=== PATIENT | male | born 1955 | race Caucasian/White ===

== ENCOUNTER 2018-09-01 15:02 | Emergency (ER) | payer MEDICAID, SELFPAY ==
[2018-09-01 15:04] VITALS: BP 124/69; PULSE 85; RESP 16; TEMP 36.7; O2SAT 98; BMI 18.9
--- NOTE | 2018-09-01 15:21 | ED.VISSUMM ---
- ER Visit Summary Date of Service: 09/01/18 Chief Complaint: Difficulty swallowing and constipated History of Present Illness: The patient is a 62 M past medical history of a cholecystectomy. Patient is currently on no medications. He states that for a month he has had difficulty swallowing he is able to swallow at times but states sometimes he swallows and it comes back up. He denies any pain. He denies any fever. He denies ever having upper endoscopy. Also states he has had constipation recently but has had a bowel movement in the last 5 days. Normal pain. Physical Examination: Well-appearing male no acute distress. Vital signs are stable and afebrile. HEENT exam mildly dry mucous membranes. He is able to swallow his own secretions. I gave him a glass of water he was able to swallow it. He seemed to throw his head back to help get it down but he did not have any difficulty swallowing. He did not bring it back up. There is no stridor. No drooling. Neck is nontender. Trachea midline. No lymphadenopathy. Lungs clear to auscultation bilaterally. Heart regular rhythm no murmur. Abdomen is soft and nontender normal bowel sounds no peritoneal signs. There is absolutely no signs of obstruction. He is got a scaphoid abdomen. He is thin. He is completely nontender. There is no hernias or masses. No pulsatile mass. No localizing tenderness. Patient is moving all 4 extremities. The neurovascular intact. No edema. Normal range of motion. Neurologically he is awake and alert with no focal motor deficit. Back is nontender. Test Results: CBC shows a normal white count of 7 and hemoglobin of 15. No bands. Chemistry showed gap of 4 BUN of 25 creatinine 1.35 with no old labs available for comparison. Single view KUB shows no acute abnormality read both by myself the radiologist there are no significant signs of obstruction and definitely no significant amount of stool. Emergency Department Course and Treatment: Patient clinically looks well. He may have esophageal narrowing or even potentially esophageal ring. This could also be fictitious in the patient's mind only. Will need to follow-up for outpatient endoscopy. Repeat exam patient is doing well. He will be discharged home. Follow-up with a local primary care physician who also be referred to Dr. Jasson Gonzalez on-call for no doc for general surgery I have him on page patient may or may not need upper endoscopy evaluating for possible esophageal narrowing. Treatment Plan: Discharge to home. Follow-up with outpatient general surgery for possible upper endoscopy Disposition: Discharge Impression: Subjective difficulty swallowing Mild renal insufficiency from dehydration This note was generated with Smart Checkout dictation software. It may contain incorrect words, spelling, and punctuation that were not noted in review of the chart prior to signing ED Disposition - Plan for ED Patient: Referrals: Mike Tapia MD [STAFF PHYSICIAN] -
[2018-09-01 15:40] LABS: Absolute Lymphocyte Count 1.78 X10^3/ul (0.83-4.51); Absolute Neutrophil Count 5.3 X10^3/uL (2.0-7.7); Basophil# 0.05 X10^3/uL; Basophil% 0.6 % (0-1); Eosinophils% 1.3 % (0-5); Hematocrit 45.3 % (40-54); Hemoglobin 15.2 g/dl (13.0-16.5); Lymphocyte # 1.78 X10^3/ul (4.0); Lymphocyte % 22.4 % (19-41); Mean Corp Hgb Conc 33.6 g/gl (32-36); Mean Corpuscular Hgb 29.4 pg (27.0-32.0); Mean Corpuscular Volume 87.6 fL (80-94); Mean Platelet Vol. 9.1 fl (6.2-12.0); Monocyte# 0.71 X10^3/uL; Neutrophil # 5.28 X10^3/uL (2.7-7.7); Neutrophil % 66.6 % (47-70); POSITIVE COUNT NO; POSITIVE DIFFERENTIAL NO; POSITIVE MORPHOLOGY NO; Platelet Count 268 K/mm3 (150-450); RBC Distribution Width SD 41.4 fl (35.1-43.9); Red Blood Count 5.17 M/mm3 (4.6-6.2); White Blood Count 7.9 K/mm3 (4.4-11.0)
--- NOTE | 2018-09-01 15:40 | RAD_ITS ---
STUDY: X-RAY - ABDOMEN/PELVIS REASON FOR EXAM: Male, 62 years old. Constipation TECHNIQUE: KUB COMPARISON: None. FINDINGS: Normal visualized lung bases. There is an unremarkable bowel gas pattern. There is no demonstrated free abdominal air. The visualized liver, spleen and kidneys are grossly normal in size and morphology. Tiny calcifications in the pelvis likely representing phleboliths.. Lumbar spine demonstrates mild dextroscoliosis. RAD/Abdomen Single View IMPRESSION: Nonspecific abdominal series. Electronically Signed: Slava Parada MD at 16:52 EDT , Service support ,
[2018-09-01 15:48] LABS: Anion Gap 4 (5-15); BUN 25 mg/dL (7-18); BUN/Creat Ratio 18.5 RATIO (10-20); Calcium,Total 9.7 mg/dL (8.5-10.1); Chloride 104 mmol/L (98-107); Creatinine, Serum 1.35 mg/dL (0.70-1.30); EST Glomerular Filtration Rate 57 mL/min (>60); Est Glom Filt Rate - Afr Amer 69 mL/min (>60); Estimated Creatinine Clearance 48.66 ml/min; Glucose 95 mg/dL (74-106); Potassium 3.8 mmol/L (3.5-5.1); Sodium Level 136 mmol/L (136-145)
[2018-09-01] MEDS: 0.9% Normal Saline 1,000 ML 999 ML IV (15:52)
--- NOTE | 2018-09-01 17:09 | ED.DEP ---
ED Disposition - Plan for ED Patient: Disposition: Home or Assisted Living Referrals: Karlos Gonzalez MD [STAFF PHYSICIAN] - As soon as possible Additional Instructions: Your labs and x-ray were pretty unremarkable. There is no significant signs of a significant constipation. The general surgeon software configuration analyst today is Dr. Jasson Gonzalez. I spoke with him. He said because office on Tuesday and he can see you on Tuesday. He will determine if he needs to do upper endoscopy to evaluate your difficulty swallowing. Drink plenty of fluids. And soft diet. No meat and to follow-up.
[2018-09-01 17:21] VITALS: BP 129/64; PULSE 78; RESP 16; O2SAT 99
== END 2018-09-01 17:22 | disposition home or self-care (01) ==
PROVIDERS: Emergency Provider Emergency Medicine
DX: R13.10 Dysphagia, unspecified (principal); N28.9 Disorder of kidney and ureter, unspecified; E86.0 Dehydration; Z90.49 Acquired absence of other specified parts of digestive tract; K59.00 Constipation, unspecified; Z72.0 Tobacco use
CPT/HCPCS: 74018; 80048; 85025; 99283; J7030; A4216

== ENCOUNTER → 2018-09-12 08:43 | Outpatient (CLI) | payer MEDICAID, SELFPAY ==
[2018-09-01 15:04] VITALS: BMI 18.9
--- NOTE | 2018-09-12 08:45 | RAD_ITS ---
Patient swallowed barium with difficulty. There is marked narrowing of the lower third of the esophagus with hanging edges. The findings are highly suggestive of tumor however possibility of Bai's esophagus cannot be ruled out. Direct visualization and biopsy are indicated. Barium remained a long time in the upper esophagus before it passes through the markedly stenotic area. RAD/Esophagus Only IMPRESSION: Marked narrowing of the distal third of the esophagus consistent with tumor, however Bhargav's esophagus cannot be excluded. For further workup. Electronically Signed: Jazz Holman, at 9:59 EDT Tel , Service support ,
== END ==
PROVIDERS: Referring Provider Surgery; Visit Provider Surgery
DX: R13.10 Dysphagia, unspecified (principal)
CPT/HCPCS: 74220

== ENCOUNTER 2018-10-10 14:48 | Emergency (ER) | payer MEDICAID, SELFPAY ==
[2018-10-10 14:49] VITALS: BP 119/57; PULSE 106; RESP 18; TEMP 36.4; O2SAT 99; BMI 14.8
--- NOTE | 2018-10-10 15:13 | ED.DCSUM_ITS ---
History of Present Illness Chief Complaint: General Illness Detail of Chief Complaint: trouble swallowing Informant: Patient, PCP - surgery PA via phone report Onset: Month(s) - 1 Context: Gradual Onset Timing: Continuous Quality: trouble swallowing Location: lower chest/esophagus Current Severity: Severe Maximum Severity: Severe Worsened by: nothing Relieved by: nothing Associated Symptoms: nonbilious vomiting Narrative: Patient has been having trouble swallowing for the past month or so. He had a barium swallow that showed a severe stenosis of the distal esophagus, he then had an upper GI by Dr. Santo about 10 days ago who verified this, but he is not a washer and crusher tender and he was not able to dilate him although he thinks as a result of the scope things might of been improved a little bit. The patient was able to eat mashed potatoes with butter for several days but now he is not and can only pass liquids. He continues to lose weight and now has lost a total of 32 pounds since before this started. There is no gastroenterology in this hospital or area, and he was referred to [facility]. However, the patient is unable to get there, so he was referred to this hospital today so that we could facilitate transfer there for him. He has not had a consultation with a washer and crusher tender yet. He has had mid and lower back discomfort for the past month, it is not changed with swallowing or vomiting but is worse with movement. He denies any dyspnea. Past Medical History - Allergies and Home Meds Allergies/Adverse Reactions: Allergies haloperidol [From Haldol] Allergy (Verified 10/10/18 14:52) Other Past Medical History: None Surgical History: cholecystectomy Smoking Status: Former smoker Alcohol: None Drugs: Marijuana Review of Systems General: Reports: Malaise. Denies: Chills, Fever, Sweats Eyes: Denies: Visual changes - bilaterally, Diplopia ENT: Denies: Rhinorrhea, Sore throat Cardiovascular: Denies: Chest pain - only sensation that something is stuck whenever he eats solids, Palpitations Respiratory: Denies: Dyspnea, Cough, Dyspnea on exertion Gastrointestinal: Reports: Vomiting. Denies: Abdominal pain, Nausea, Diarrhea, Melena, Hematochezia Genitourinary: Denies: Dysuria, Hematuria, Frequency Musculoskeletal: Reports: Back pain. Denies: Extremity Pain Skin: Denies: Rash, Wounds Neurological: Denies: Headache, Weakness, Numbness Physical Exam Vital Signs/Narrative: Vital Signs Temp Pulse Resp BP Pulse Ox 10/10/18 14:49 97.5 F L 106 H 18 119/57 L 99 Inital Vital Signs reviewed: Yes General: Well nourished, Well developed, Cachectic, No Acute Distress Head: Normocephalic, Atraumatic Eyes: Perrl, EOMI ENT: Moist mucous membranes, No rhinorrhea Neck: Supple, Nontender Cardiovascular: Regular rate, Regular rhythm, No murmurs, Normal S1, Normal S2, Tachycardia - mild Respiratory: No distress, CTA bilaterally, Chest nontender Abdomen: Soft, Nontender, Nondistended, Normal bowel sounds Back: Nontender, Normal Inspection, - - FROM. Negative for: CVA tenderness, Spinal tenderness Extremities: Nontender, No edema. Negative for: Calf Tenderness Skin: Normal color, No rash, No Trauma Neurological: Alert, Oriented x3, Cranial nerves II-XII grossly intact, Normal Strength, Normal Sensation, Normal Gait Psychological: Normal affect, Normal Mood Diagnostic/Tx/Re-eval Laboratory Tests 10/10/18 10/10/18 Range/Units 15:25 15:25 WBC 8.4 (4.4-11.0) K/mm3 RBC 4.64 (4.6-6.2) M/mm3 Hgb 14.0 (13.0-16.5) g/dL Hct 41.5 (40-54) % MCV 89.4 (80-94) fL MCH 30.2 (27.0-32.0) pg MCHC 33.7 (32-36) g/dL RDW Std Deviation 43.5 (35.1-43.9) fl RDW Coeff of Matthias 13.4 (11.6-14.6) % Plt Count 233 (150-450) K/mm3 MPV 9.6 (6.2-12.0) fl Immature Gran % (Auto) 0.500 (0.0-0.9) % Neut % (Auto) 67.7 (47-70) % Lymph % (Auto) 23.3 (19-41) % Calhoun % (Auto) 7.1 (0-10) % Eos % (Auto) 1.0 (0-5) % Baso % (Auto) 0.4 (0-1) % Absolute Neuts (auto) 5.7 (2.0-7.7) X10^3/uL Absolute Lymphs (auto) 1.96 (0.83-4.51) X10^3/uL Absolute Nucleated RBC 0.00 (0-5) 10^3/uL Nucleated RBC % 0 (0-5) % Sodium 139 (136-145) mmol/L Potassium 3.7 (3.5-5.1) mmol/L Chloride 103 (98-107) mmol/L Carbon Dioxide 31.0 (21.0-32.0) mmol/L Anion Gap 5 (5-15) BUN 31 H (7-18) mg/dL Creatinine 1.12 (0.70-1.30) mg/dL Estim Creat Clear Calc 45.77 ml/min Est GFR (MDRD) Af Amer 86 (>60) mL/min Est GFR (MDRD) Non-Af 71 (>60) mL/min BUN/Creatinine Ratio 27.7 H (10-20) RATIO Glucose 110 H (74-106) mg/dL Calcium 9.4 (8.5-10.1) mg/dL - Medical Decision Making Patient was given IV fluids and he remained comfortable in the emergency department. He prefer to go to [facility], staying within the [facility] system, initially they did not have a bed but they called us back short while later confirmed that they had an accepting physician, he was transferred in stable condition by ground. ED Disposition - Plan for ED Patient: Disposition: [facility] Diagnosis: Dysphagia, Dehydration
[2018-10-10 15:39] LABS: Absolute Lymphocyte Count 1.96 X10^3/uL (0.83-4.51); Absolute Neutrophil Count 5.7 X10^3/uL (2.0-7.7); Basophil# 0.03 X10^3/uL; Basophil% 0.4 % (0-1); Eosinophil# 0.08 X10^3/uL; Hematocrit 41.5 % (40-54); Lymphocyte # 1.96 X10^3/ul (4.0); Lymphocyte % 23.3 % (19-41); Mean Corp Hgb Conc 33.7 g/dL (32-36); Mean Corpuscular Hgb 30.2 pg (27.0-32.0); Mean Corpuscular Volume 89.4 fL (80-94); Mean Platelet Vol. 9.6 fl (6.2-12.0); Monocyte% 7.1 % (0-10); NRBC Flagged by Analyzer 0 % (0-5); Neutrophil # 5.71 X10^3/uL (2.7-7.7); Neutrophil % 67.7 % (47-70); Platelet Count 233 K/mm3 (150-450); RBC Distribution Width CV 13.4 % (11.6-14.6); RBC Distribution Width SD 43.5 fl (35.1-43.9); Red Blood Count 4.64 M/mm3 (4.6-6.2); White Blood Count 8.4 K/mm3 (4.4-11.0)
[2018-10-10] MEDS: 0.9% Normal Saline 1,000 ML 150 ML IV (15:42)
[2018-10-10 15:57] LABS: Anion Gap 5 (5-15); BUN 31 mg/dL (7-18); BUN/Creat Ratio 27.7 RATIO (10-20); Calcium,Total 9.4 mg/dL (8.5-10.1); Chloride 103 mmol/L (98-107); Creatinine, Serum 1.12 mg/dL (0.70-1.30); EST Glomerular Filtration Rate 71 mL/min (>60); Est Glom Filt Rate - Afr Amer 86 mL/min (>60); Estimated Creatinine Clearance 45.77 ml/min; Glucose 110 mg/dL (74-106); Potassium 3.7 mmol/L (3.5-5.1); Sodium Level 139 mmol/L (136-145)
--- NOTE | 2018-10-10 16:13 | NURSING ---
CALLED [facility]ITA LARES TALKED TO BEV.
--- NOTE | 2018-10-10 17:12 | NURSING ---
ACCEPTING DR PEYMAN PHAM AT [facility]
[2018-10-10 17:45] VITALS: RESP 18
--- NOTE | 2018-10-10 17:55 | NURSING ---
CALLED [facility] FOR TRANSPORT.
--- NOTE | 2018-10-10 18:07 | NURSING ---
MARITA ADAM [id number] NURSE TO NURSE [phone]
== END 2018-10-10 18:45 | disposition short-term general hospital (02) ==
LOC: ED 15:16
PROVIDERS: Emergency Provider Emergency Medicine; Family Provider Family Medicine Geriatric Medicine; PCP Family Medicine Geriatric Medicine
DX: R13.10 Dysphagia, unspecified (principal); E86.0 Dehydration; Z87.891 Personal history of nicotine dependence; Z90.49 Acquired absence of other specified parts of digestive tract; Z88.8 Allergy status to other drugs, medicaments and biological substances
CPT/HCPCS: 80048; 85025; 96360; 96361; 99284; J7030; A4216

== ENCOUNTER 2018-10-25 10:00 | Observation (INO) | payer MEDICAID, SELFPAY ==
--- NOTE | 2018-10-24 06:09 | PCM.HP.BLA ---
History and Physical Date of Admission: 10/26/18 HISTORY AND PHYSICAL ? Brennan Mixon 1955 ? REFERRING PHYSICIAN: ??Karlos Gonzalez MD ? CHIEF COMPLAINT: ??Established Patient (peg tube) ? HPI: The patient is a 62 year old male referred for endoscopy.?? ? Brennan notes no history of colon complaints. ?Further questioning, the patient notes a degree of constipation with having a bowel movement once every 2 days. ? The patient ?notes the following upper complaints: ??Brennan notes abdominal pain. ???The pain occurs in the following locations: ?epigastric region . ?Brennan notes heartburn. ??Brennan notes dysphagia. ?Brennan denies a history of ulcers/ peptic ulcer disease. ???More specifically, the patient notes regurgitation immediately after eating food and also frequently vomiting of bile. ?His weight is decreased from 132 pounds to 114 pounds over the last 3 weeks. ?He denies hematemesis or coffee-ground emesis. ?He notes no hematochezia or melena. ? Brennan has not undergone prior endoscopy. ? He had an upper GI performed at [facility] on September 12, 2018. ?This was interpreted as: ? Marked narrowing of the distal third of the esophagus consistent with tumor, however Bhargav's esophagus cannot be excluded. ?For further workup. ? I performed upper endoscopy on September 15, 2018.. ?The patient was found to have duodenitis in the bulb, mild diffuse gastritis, and significant distal esophagitis with what appeared to be a benign-appearing intrinsic stenosis 32 centers from the incisor which was 3 cm in length. ?I was able to insert the scope beyond the area with gentle pressure. ?There were no signs of obvious malignancy at the area. ?Biopsies were taken of the area and scope was being withdrawn. ?Patient declined colonoscopy at that time due to the concerns of his ability to tolerate a prep.. ?Pathology demonstrated: ? FINAL DIAGNOSIS 1. Stomach, antrum, biopsy (A) - Reactive gastropathy with intestinal metaplasia. - No morphologic evidence of H. pylori organisms on routine stain. 2. Esophagogastric junction, biopsy (B) - Inflamed gastric cardiofundic-type mucosa, compatible with reflux esophagitis. - Negative for intestinal metaplasia. 3. Esophagus, stricture at 32 cm, biopsy (C) - Esophageal squamous mucosa with basal layer hyperplasia. - No evidence of eosinophilic esophagitis. - Negative for dysplasia or carcinoma. JASBIR/rhea 09/18/2018 Varghese Burdick M.D. (Electronic Signature) ? The patient note noted on initial resolution of his dysphagia complaints since the procedure. ?The patient returns today however noting very soon after he had called the office stating was doing well he is again having inability to tolerate solid foods. ?He now states he is having difficulty swallowing liquids including ensure. ?His weight is now decreased to 103 pounds ? [facility] ?Repeat upper endoscopy with balloon dilatation demonstrated recurrent stricture. ?Repeat biopsy returned as poorly differentiated adenocarcinoma. ?CT scan of the chest was consistent with a right lower lobe lung cancer. ?The patient remains poorly nourished and is still having difficulty swallowing. ?He is referred for PEG tube placement. The patient is being seen by me today at the request of ?for my opinion and advice regarding PEG tube placement.? ? ? PAST MEDICAL HISTORY PAST MEDICAL HISTORY Diagnosis Date ? Back pain ? ? Lung cancer (HCC) ? ? Manic depression (HCC) ? ? ? PAST SURGICAL HISTORY PAST SURGICAL HISTORY Procedure Laterality Date ? EGD ? 09/15/2018 ? LAP CHOLECYSTECT/CHOLANGIOGRAPHY ? ? ? PAST SURGICAL HISTORY OF Left 1977 ? Eye surgery s/p trauma ? REMOVAL OF TONSILS,12+ Y/O ? CURRENT MEDICATIONS ? Current Outpatient Medications: pantoprazole DR (PROTONIX) 40 mg tablet Take 1 tablet by mouth DAILY (6 AM). acetaminophen (TYLENOL) 325 mg tablet Take 1-2 tablets by mouth every 4 hours as needed. metoprolol tartrate, short acting, (LOPRESSOR) 50 mg tablet Take 1 tablet by mouth every 8 hours. nicotine (NICODERM) 21 mg/24 hr Apply 1 Patch as directed once daily. senna-docusate (SENNA-S) 8.6-50 mg per tablet Take 1 tablet by mouth at bedtime as needed. ? No current facility-administered medications for this visit.? ? ALLERGIES:?Haldol [Haloperidol] ? PERSONAL HISTORY:? SOCIAL HISTORY Social History ??Socioeconomic History ?Marital status: ?Spouse name: Not on file ?Number of children: Not on file ?Years of education: Not on file ?Highest education level: Not on file ??Occupational History ?Not on file ??Social Needs ?Financial resource strain: Not on file ?Food insecurity: ?Worry: Not on file ?Inability: Not on file ?Transportation needs: ?Medical: Not on file ?Non-medical: Not on file ??Tobacco Use ?Smoking status: Former Smoker ?Packs/day: 1.00 ?Years: 50.00 ?Pack years: 50 ?Types: Cigarettes ?Quit date: 10/10/2018 ?Years since quittin.0 ?Smokeless tobacco: Never Used ?Tobacco comment: used to smoke 3 ppd ??Substance and Sexual Activity ?Alcohol use: Not Currently ?Comment: 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 ?Drug use: Yes ?Types: Marijuana ?Comment: marijuana use daily-used crack/cocaine/heroin in past last drug use 1 year ago ?Sexual activity: Not on file ??Lifestyle ?Physical activity: ?Days per week: Not on file ?Minutes per session: Not on file ?Stress: Not on file ??Relationships ?Social connections: ?Talks on phone: Not on file ?Gets together: Not on file ?Attends roman catholic service: Not on file ?Active member of club or organization: Not on file ?Attends meetings of clubs or organizations: Not on file ?Relationship status: Not on file ?Intimate partner violence: ?Fear of current or ex partner: Not on file ?Emotionally abused: Not on file ?Physically abused: Not on file ?Forced sexual activity: Not on file ??Other Topics ?Concerns: ?Not on file ??Social History Narrative ?Not on file ? FAMILY HISTORY:? FAMILY HISTORY FAMILY HISTORY Problem Relation Age of Onset ? Diabetes Mother ? ? Aneurysm Mother ?brain ? Heart disease Father ? ? Diabetes Maternal Grandmother ? ? REVIEW OF SYMPTOMS: ??The review of systems data was entered by the nurse and reviewed by me ? There are no exam notes on file for this visit. ? ? PHYSICAL EXAMINATION: ? General: ?The patient is 62 year old male, poorly?nourished, well hydrated in no acute distress. ?The patient is oriented to time, place, and person. ? VITALS:?Blood pressure (!) 62/58, pulse 83, temperature 36.4 ?C (97.5 ?F), temperature source Temporal, resp. rate 16, height 172.7 cm (5' 8), weight 47.6 kg (105 lb), SpO2 98 %.?Body mass index is 15.97 kg/m?.? ? HEENT: ?Normal cephalic, ataumatic, pupils are equally round, sclera are anicteric, mucous membranes are moist, oropharynx is clear. ?Neck has no masses, asymmetry or lymphadenopathy. ?Thyroid is unremarkable. ? Respiratory: ?Clear to auscultation and percussion. ?Normal respiratory excursion and pattern. ? Cardiac: ?Examination is regular rate and rhythm. ? Abdominal exam: ?Soft, nontender, ?with no palpable masses. ?No hepatosplenomegaly. ?No palpable hernias. ? Rectal exam:?exam deferred ? Extremities: ?no clubbing, cyanosis or edema. ?No adenopathy. ? Other: ? LABORATORY VALUES: As Noted ? RADIOLOGIC STUDIES: ?As Noted ? Assessment ? IMPRESSION:?Lung cancer, esophageal stenosis, malnutrition, need for feeding access ? PLAN: ?I plan to perform upper?endoscopy with PEG tube placement. ??We discussed the risks and benefits of the planned endoscopy. ?I have informed the patient that complications can occur including failure to complete the endoscopy and perforation. ?The patient had the opportunity to ask questions concerning the planned endoscopy. ?My staff has also explained the procedure to the patient in understandable terms and has given the patient printed material concerning the procedure. ?The patient freely consents to surgery. ? ? ? I plan for monitored anesthetic care. ? Diagnoses:?(R13.10) Dysphagia, unspecified type ?(primary encounter diagnosis) (K22.2) Esophageal stenosis (C34.12) Malignant neoplasm of upper lobe of left lung (HCC) ? A letter was sent to Dr.?Shalom Jaramillo MD?indicating the above finding for this patient. ?? Return to Clinic: The patient is instructed to follow-up with me?1 week post operatively. ? Karlos Gonzalez MD
[2018-10-25 10:01] VITALS: BP 121/77; PULSE 121; RESP 19; TEMP 36.8; O2SAT 95; BMI 15.5
--- NOTE | 2018-10-25 10:22 | ED.VISSUMM ---
- ER Visit Summary Date of Service: 10/25/18 Chief Complaint: Generalized weakness History of Present Illness: The patient is a 62 M 3 of lung CA with mets to his esophagus, brain and bones. Patient states he feels very frustrated. Feels like he does not get any help. States he was recently admitted to [facility]. States he feels dehydrated. And weak all over. Denies any fever. Says he has chronic pain from his bony metastases. He also made statements about being suicidal which I initially did not know about but the police were informed and came in with cognitive the patient. Physical Examination: Elderly male looks very frail and weak. Atrophied musculature with significant weight loss. Vital signs are stable his heart rate is tachycardic at 121. He is afebrile. H EENT exam dry mucous membranes. Clinically looks dehydrated. Neck nontender. Lungs clear to auscultation. Heart tachycardic rate about 120 no murmur. Chest wall nontender. Abdomen soft and nontender. Scaphoid. Nondistended. No peritoneal signs. Patient is moving all 4 extremities. Again he is very frail and weak looking. He is basically skin and bones. Neurologically he is awake and alert. Test Results: CBC had a white count of 17,000. Hemoglobin 13. Chemistries gap of 9 BUN 55 creatinine 1.2 consistent with dehydration. Emergency Department Course and Treatment: Patient treated with a liter normal saline. Morphine and Zofran for pain. Screening labs will be obtained. I am having social media intern come down to talk to the patient and try to get to the bottom why this patient is or is not in hospice. See if we can give him further assistance. Treatment Plan: Patient is doing better with IV fluids. telephone services sales representative spoke with patient at length. Hospice was also involved and they will admit the patient to hospice after he has his PEG tube placed tomorrow. In light that he is having trouble swallowing and is dehydrated I will ask to see if I can get him admitted for dehydration he had his PEG tube placed tomorrow and then go to hospice. Disposition: I have the hospitalist and the patient's surgeon that will be filling his PEG tube both on.. Plan would be a connection. Impression: Acute generalized weakness Acute dehydration History of lung CA with mets to his brain, bones and esophagus This note was generated with [employer] Me dictation software. It may contain incorrect words, spelling, and punctuation that were not noted in review of the chart prior to signing ED Disposition - Plan for ED Patient: Referrals: Shalom Jaramillo Chi, MD [Primary Care Provider] -
--- NOTE | 2018-10-25 10:35 | CM.ED ---
Social Work Assessment Referral Date: 10/25/18 Informant: DR. BUNCH Reason for Consult: D/C PLANNING Information obtained from: PATIENT Living Arrangements: PATIENT REPORTS LIVES HOME ALONE IN A 1 FLOOR APARTMENT DME: PATIENT REPORTS CURRENTLY DOES NOT HAVE ANY DME AND FEELS WOULD BENEFIT FROM A WALKER. Employment/Financial: DISABLED/PATIENT HAS [employer]-MEDICAID Supports: PATIENT REPORTS HAS GOOD SUPPORT FROM FRIENDHAYLEE. Social/Family Stressors: PATIENT WITH HX OF LUNG CANCER. PATIENT STATES NO CHILDREN AND REPORTS SIBLINGS ARE AWARE OF DX, BUT DOES NOT HAVE ANYTHING TO DO WITH FAMILY. PATIENT STATES, I NEED HELP. Mental Health History: PATIENT REPORTS HX OF DEPRESSION AND IS TREATED WITH THERAPY THROUGH AA. Substance Abuse History: PATIENT ADMITS TO HX OF SUBSTANCE ABUSE. Substance(s) of choice: ALCOHOL, COCAINE, MARIJUANA Last use: PATIENT STATES HAS NOT CONSUMED ALCOHOL OR USED COCAINE IN OVER 1 YEAR. PATIENT REPORTS MARIJUANA USE 2 WEEKS AGO. PATIENT STATES HAS BEEN ACTIVE IN ALCOHOLICS ANONYMOUS (AA) Interventions: SOCIAL SERVICE ASSESSMENT HOSPICE REFERRAL Assessment: DISCUSSED CASE WITH DR. BUNCH AND MET WITH PATIENT TO DISCUSS D/C PLANNING. PATIENT REPORTS IS TO HAVE FEEDING TUBE PLACED TOMORROW. PATIENT STATES HAS BEEN FEELING WEAKER AND WEAKER. DISCUSSED OPTIONS AND PATIENT STATES HAS BEEN TRYING TO MEET WITH HOSPICE FOR SOME TIME NOW. PATIENT IN AGREEMENT WITH THIS WORKER MAKING HOSPICE REFERRAL. PATIENT STATES DOES NOT HAVE HPOA AND HAS BEEN WAITING TO FEEL BETTER TO GET HPOA IN PLACE. PATIENT STATES BEST FRIEND, HAYLEE CROSS TO BE IN LATER THIS MORNING AND WOULD LIKE HIM TO BE PRESENT FOR HOSPICE CONSULT. UPDATED DR. BUNCH ON THE ABOVE. DR. BUNCH TO ORDER HOSPICE REFERRAL. NURSING UPDATED ON PLAN. CALL TO [facility], SPOKE WITH DALIA. REQUESTED INFORMATION GIVEN AND FAXED. PLAN: HOSPICE REFERRAL
[2018-10-25] MEDS: 0.9% Normal Saline 1,000 ML 1000 ML IV (10:41)
[2018-10-25] MEDS: Morphine 4 MG/ML Syringe IV (10:42)
[2018-10-25] MEDS: Ondansetron 4 MG/2 ML Vial IV ×2 (10:42→22:45)
--- NOTE | 2018-10-25 10:50 | CM.ED ---
SOCIAL WORK RECEIVED CALL BACK FROM DALIA WITH HOSPICE. PER DALIA, HOSPICE NURSE TO BE IN AROUND 11:30A TO MEET WITH PATIENT AND PATIENT'S FRIEND, AL. NURSING AND DR. BUNCH UPDATED. PRESTON NEFF, STEAM PRESSER, VISITING HOUSEKEEPER.
[2018-10-25 10:53] LABS: Anion Gap 9 (5-15); BUN 55 mg/dL (7-18); Calcium,Total 9.9 mg/dL (8.5-10.1); Chloride 99 mmol/L (98-107); Creatinine, Serum 1.25 mg/dL (0.70-1.30); EST Glomerular Filtration Rate 62 mL/min (>60); Est Glom Filt Rate - Afr Amer 75 mL/min (>60); Estimated Creatinine Clearance 40.73 ml/min; Glucose 137 mg/dL (74-106); Potassium 3.8 mmol/L (3.5-5.1); Sodium Level 136 mmol/L (136-145)
[2018-10-25 11:30] LABS: Absolute Lymphocyte Count 0.72 X10^3/uL (0.83-4.51); Absolute Neutrophil Count 15.2 X10^3/uL (2.0-7.7); Basophil# 0.13 X10^3/uL; Basophil% 0.8 % (0-1); Eosinophil# 0.03 X10^3/uL; Eosinophils% 0.2 % (0-5); Hematocrit 38.5 % (40-54); Hemoglobin 13.1 g/dL (13.0-16.5); Lymphocyte # 0.72 X10^3/ul (4.0); Lymphocyte % 4.2 % (19-41); Mean Corpuscular Hgb 29.8 pg (27.0-32.0); Mean Corpuscular Volume 87.7 fL (80-94); Mean Platelet Vol. 11.8 fl (6.2-12.0); Monocyte# 0.92 X10^3/uL; Monocyte% 5.3 % (0-10); NRBC Flagged by Analyzer 0 % (0-5); Neutrophil % 88.3 % (47-70); POSITIVE COUNT YES; POSITIVE MORPHOLOGY YES; RBC Distribution Width CV 13.9 % (11.6-14.6); RBC Distribution Width SD 43.9 fl (35.1-43.9); Red Blood Count 4.39 M/mm3 (4.6-6.2); White Blood Count 17.2 K/mm3 (4.4-11.0)
[2018-10-25 11:31] LABS: Differential Indicated SCAN CRITERIA MET
--- NOTE | 2018-10-25 12:00 | CM.ED ---
SOCIAL WORK HOSPICE HERE MEETING WITH PATIENT AND PATIENT'S FRIEND, HAYLEE CROSS. PATIENT WANTING TO PROCEED WITH HAVING FEEDING TUBE PLACED TOMORROW. HOSPICE TO ADMIT ONCE PATIENT IS HOME. UPDATED DR. BUNCH ON THE ABOVE. DR. BUNCH REVIEWING LABS. PLAN: TBD PRESTON NEFF, SET RIDER, DOGGER.
[2018-10-25 12:18] VITALS: BP 117/73; PULSE 98; RESP 18; O2SAT 99
--- NOTE | 2018-10-25 13:10 | RAD_ITS ---
STUDY: X-RAY CHEST REASON FOR EXAM: Male, 62 years old. History of lung cancer. TECHNIQUE: PA and lateral views of the chest. COMPARISON: None. FINDINGS: Hyperinflation. Extensive consolidation in the left lower lobe. Partial opacification of the lingular segment of the left upper lobe. There is no demonstrated pleural abnormality. Normal size heart. Normal mediastinum and federico. Normal visualized pulmonary arteries. There is atherosclerotic calcification of the aortic arch with tortuosity. There are degenerative changes of the visualized thoracic spine. Normal visualized ribs, clavicles, and shoulders. There is no demonstrated abnormality of the visualized soft tissue structures of the upper abdomen. RAD/Chest PA and Lateral IMPRESSION: Extensive consolidation in the left lower lobe. Infiltration in the lingular segment of the left upper lobe. Hyperinflation. Electronically Signed: Jim Vasquez, at 13:31 EDT , Service support ,
[2018-10-25 13:35] VITALS: PULSE 130; RESP 20; O2SAT 94; BMI 15.0; BMI 15.1
--- NOTE | 2018-10-25 13:35 | HP.PCM_ITS ---
Problem List (1) Bronchogenic lung cancer Status: Acute (2) Leukocytosis Status: Acute (3) Cancer cachexia Status: Acute (4) Extensive consolidation of left lung Status: Acute (5) COPD (chronic obstructive pulmonary disease) Status: Chronic (6) Generalized weakness Status: Acute (7) Dysphagia Status: Acute History of Present Illness Date of Admission: 10/25/18 Chief Complaint: Esophageal dysphagia The patient is a 62 year old M with history of bronchogenic cancer diagnosed about 2 months ago with severe dysphagia and was transferred to [facility] on October 10, 2018. Patient had work-up there which shows metastasis to esophagus, brain and bones. Patient lost about 18 pounds in last 3 weeks mainly secondary to severe dysphagia. He had EGD done by Dr. Rodriguez on September 07, 2018 which shows intrinsic stenosis 32 cm from an seizure about 3 cm in length along with significant distal esophagitis, mild diffuse gastritis and duodenitis. The patient also complained of generalized pain mainly on the left lower ribs and back. He is too weak that his cough is very weak and not able to ambulate. Patient wants PEG tube and is already talked with the hospice service In ED, patient has tachycardia, heart rate 121, respiratory rate 19. Leukocytosis 17.2 thousand, neutrophil 88%.] Past Medical History Past Medical History (Chronic Problems): Chronic Problems COPD (chronic obstructive pulmonary disease) (Chronic) Allergies haloperidol [From Haldol] Allergy (Verified 10/25/18 10:03) Other Home Medications: Ambulatory Orders Medication Instructions Recorded NK 09/01/18 Surgical History: cholecystectomy Smoking Status: Former smoker - Patient has a history of his smoking of 45 years, started at the age of 15 smoking 3 packs/day until about 1 year ago. For last 1 year pack per day and then quit about 1 month ago - *Family History Paternal History Items: No pertinent history Review of Systems Constitutional: Reports: Anorexia, Chills, Malaise, Weakness, Weight Change, Fatigue HEENT: Denies: Head Aches, Sinus Congestion, Sinus Drainage Cardiovascular: Denies: Chest Pain, Palpitations Respiratory: Reports: Cough - Tonic, Shortness of Breath, Shortness of breath upon exertion. Denies: Shortness of breath at rest, Sputum production Gastrointestinal: Denies: Abdominal Pain, Nausea, Vomiting Genitourinary: Denies: Dysuria, Frequency Musculoskeletal: Reports: Back Pain, Joint Pain, Muscle pain. Denies: Joint Tenderness Skin: Denies: Rash, Wounds Neurological: Reports: Balance problems. Denies: Focal weakness, Numbness, Tingling Psychiatric: Denies: Anxiety, Depression, Homicidal Ideations, Suicidal Ideations Hematologic/ Lymphatic: Denies: Easy Bruising, Easy Bleeding VTE Information - Inpt Only VTE Present on Admission: No VTE Mechan Device Prophylaxis: None VTE Pharm Prophylaxis ordered?: Yes Patient Problems: Active and Suspected Problems Bronchogenic lung cancer (Acute) Leukocytosis (Acute) Cancer cachexia (Acute) Extensive consolidation of left lung (Acute) Generalized weakness (Acute) Dysphagia (Acute) - Physical Exam General: Alert, Oriented x3, Cooperative HEENT: Atraumatic, PERRLA, EOMI, Normocephalic Oral: Dry Mucosa, - - Thick mucus present at the deep pharyngeal wall. Neck: Supple, No JVD, Negative Carotid Bruits Lungs: Clear to auscultation, No rhonchi, No wheeze, No rales, Diminished - Air entry severely diminished., - - Tenderness present over left lower ribs posterior laterally Cardiovascular: Regular rate, No murmurs Abdomen: Bowel Sounds Present, Soft, Non Tender, Non-Distended Extremities: No edema, Capillary Refill Less than 3 Seconds Skin: No rashes, No breakdown Musculoskeletal: Arthritic Changes, Muscle Wasting, Tenderness - Tenderness at left lower ribs Neurological: Cranial nerves II-XII grossly intact, Deep Tendon Reflexes 2+/4 and Symmetrical, Neuro grossly intact Psych/Mental Status: Normal Affect, Appropriate Vital Signs Temp Pulse Resp BP Pulse Ox 98.2 F 98 18 117/73 99 10/25/18 10:01 10/25/18 12:18 10/25/18 12:18 10/25/18 12:18 10/25/18 12:18 Weight: 102 lb 4.712 oz Body Mass Index (BMI) 15.5 Laboratory Tests Past 24 Hrs 10/25/18 10/25/18 10:25 10:25 WBC 17.2 H RBC 4.39 L Hgb 13.1 Hct 38.5 L MCV 87.7 MCH 29.8 MCHC 34.0 RDW Std Deviation 43.9 RDW Coeff of Matthias 13.9 Plt Count MPV 11.8 Immature Gran % (Auto) 1.200 H Neut % (Auto) 88.3 H Lymph % (Auto) 4.2 L [place] % (Auto) 5.3 Eos % (Auto) 0.2 Baso % (Auto) 0.8 Absolute Neuts (auto) 15.2 H Absolute Lymphs (auto) 0.72 L Nucleated RBC % 0 Sodium 136 Potassium 3.8 Chloride 99 Carbon Dioxide 28.0 Anion Gap 9 BUN 55 H Creatinine 1.25 Estim Creat Clear Calc 40.73 Est GFR (MDRD) Af Amer 75 Est GFR (MDRD) Non-Af 62 BUN/Creatinine Ratio 44.0 H Glucose 137 H Calcium 9.9 Assessment/Plan All Active Problems Bronchogenic lung cancer (Acute) Leukocytosis (Acute) Cancer cachexia (Acute) Extensive consolidation of left lung (Acute) Generalized weakness (Acute) Dysphagia (Acute) The patient is a 62 year old M with history of bronchogenic cancer diagnosed about 2 months ago with severe dysphagia and was transferred to [facility] on October 10, 2018. Patient had work-up there which shows metastasis to esophagus, brain and bones. Patient lost about 18 pounds in last 3 weeks mainly secondary to severe dysphagia. He had EGD done by Dr. Rodriguez on September 07, 2018 which shows intrinsic stenosis 32 cm from an seizure about 3 cm in length along with significant distal esophagitis, mild diffuse gastritis and duodenitis. The patient also complained of generalized pain mainly on the left lower ribs and back. He is too weak that his cough is very weak and not able to ambulate. Patient wants PEG tube and is already talked with the hospice service In ED, patient has tachycardia, heart rate 121, respiratory rate 19. Leukocytosis 17.2 thousand, neutrophil 88%. 1. Bronchogenic cancer most probably left lung with possible wide metastasis to brain, bone and esophagus with severe esophageal dysphagia secondary to stricture: Patient had diagnosis and staging of lung cancer in [facility] and no documentation available to corroborate it. The patient is being admitted on [facility]. Discussed with surgeon Dr. Gonzalez. Patient being scheduled for PEG tube tomorrow. 2. Left lower lobe and lingular segment dense consolidation possible lung cancer/tumor mass with possibility of pneumonia: Chest x-ray PA and lateral done in ED shows extensive consolidation of left lower lobe and infiltration it lingular segment with features of COPD. This extensive consolidation was not presenting chest x-ray of July 2018. Started on IV Rocephin and Zithromax as patient is tachycardic, tachypneic and leukocytosis. Urinary antigens ordered. 3. COPD with extensive smoking history 4. Generalized weakness, cancer cachexia and severe protein calorie malnutrition: Nutrition is consulted. pmp certified project manager consult. Palliative care hospice. 5. MOLST/advance directive/CODE STATUS: Discussed with the patient about the CODE STATUS. He has already talked with hospice service and does not know the name of the hospice service. He agrees for DNR CC. Patient does not want artificial life support including intubation, tube feed, ventilator and/chest compression. Patient is DNR CC. Total time spent in [id number] encounter in discussion of advanced directive 18 minutes. DVT prophylaxis: On Lovenox 40 mg subcu daily. Clinical Impression(s) from Imaging Studies Chest X-Ray 10/25/18 13:10 IMPRESSION: Extensive consolidation in the left lower lobe. Infiltration in the lingular segment of the left upper lobe. Hyperinflation. Laboratory Results 10/25/18 10:25: WBC 17.2 H, RBC 4.39 L, Hgb 13.1, Hct 38.5 L, MCV 87.7, MCH 29.8, MCHC 34.0, RDW Std Deviation 43.9, RDW Coeff of Matthias 13.9, Plt Count , MPV 11.8, Immature Gran % (Auto) 1.200 H, Neut % (Auto) 88.3 H, Lymph % (Auto) 4.2 L , [place] % (Auto) 5.3, Eos % (Auto) 0.2, Baso % (Auto) 0.8, Absolute Neuts (auto) 15.2 H, Absolute Lymphs (auto) 0.72 L, Nucleated RBC % 0 10/25/18 10:25: Sodium 136, Potassium 3.8, Chloride 99, Carbon Dioxide 28.0, Anion Gap 9, BUN 55 H, Creatinine 1.25, Estim Creat Clear Calc 40.73, Est GFR (MDRD) Af Amer 75, Est GFR (MDRD) Non-Af 62, BUN/Creatinine Ratio 44.0 H, Glucose 137 H, Calcium 9.9 10/25/18 10:25: Magnesium Pending Code Visit OBSV E&M: 96529 Initial observation care L3 Procedures: 62171 Advncd Care Plan 30 Min
[2018-10-25 14:06] LABS: Magnesium 2.5 mg/dL (1.6-2.6)
[2018-10-25] MEDS: 0.9% Normal Saline 1,000 ML 100 ML IV (14:06)
[2018-10-25] MEDS: HYDROmorphone 0.5 MG/0.5 ML SYRINGE IV (14:08)
[2018-10-25] MEDS: Enoxaparin 40 MG/0.4 ML Syringe SC (14:08)
[2018-10-25 14:15] VITALS: BP 116/80; PULSE 112; RESP 20; TEMP 36.7; O2SAT 94
--- NOTE | 2018-10-25 14:19 | NURSING ---
PT HAS PERIODS OF CONFUSION AND AT THIS TIME IS REFUSING TO 1.) TAKE OFF PANTS, 2.) LET US LOCK UP/CHECK HIS WALLET-
--- NOTE | 2018-10-25 14:48 | NURSING ---
neither the rocephin iv or the zithromax doses are available on unit at this time
[2018-10-25 14:54] LABS: Platelet Estimate SLT DEC (ADEQ)
[2018-10-25] MEDS: Ceftriaxone 1 GM/50 ML BAG IV (15:07)
--- NOTE | 2018-10-25 18:04 | CON.PCM_ITS ---
Reason for Consult Date of Consultation: 10/25/18 Reason for Consultation: advanced metastatic lung cancer, dysphagia, mal nutrition, failure to thrive History of Present Illness: The patient is a 62 year old M due to thickened weight loss and dysphagia The patient ?notes the following upper complaints: ??Brennan notes abdominal pain. ???The pain occurs in the following locations: ?epigastric region . ?Brennan notes heartburn. ??Brennan notes dysphagia. ?Brennan denies a history of ulcers/ peptic ulcer disease. ???More specifically, the patient notes regurgitation immediately after eating food and also frequently vomiting of bile. ?His weight is decreased from 132 pounds to 114 pounds over the last 3 weeks. ?He denies hematemesis or coffee-ground emesis. ?He notes no hematochezia or melena. ? Brennan has not undergone prior endoscopy. ? He had an upper GI performed at [facility] on September 12, 2018. ?This was interpreted as: ? Marked narrowing of the distal third of the esophagus consistent with tumor, however Bhargav's esophagus cannot be excluded. ?For further workup. ? I performed upper endoscopy on September 15, 2018.. ?The patient was found to have duodenitis in the bulb, mild diffuse gastritis, and significant distal esophagitis with what appeared to be a benign-appearing intrinsic stenosis 32 centers from the incisor which was 3 cm in length. ?I was able to insert the scope beyond the area with gentle pressure. ?There were no signs of obvious malignancy at the area. ?Biopsies were taken of the area and scope was being withdrawn. ?Patient declined colonoscopy at that time due to the concerns of his ability to tolerate a prep.. ?Pathology demonstrated: ? FINAL DIAGNOSIS 1. Stomach, antrum, biopsy (A) - Reactive gastropathy with intestinal metaplasia. - No morphologic evidence of H. pylori organisms on routine stain. 2. Esophagogastric junction, biopsy (B) - Inflamed gastric cardiofundic-type mucosa, compatible with reflux esophagitis. - Negative for intestinal metaplasia. 3. Esophagus, stricture at 32 cm, biopsy (C) - Esophageal squamous mucosa with basal layer hyperplasia. - No evidence of eosinophilic esophagitis. - Negative for dysplasia or carcinoma. JASBIR/rhea 09/18/2018 Varghese Burdick M.D. (Electronic Signature) ? The patient note noted on initial resolution of his dysphagia complaints since the procedure. ?The patient returns today however noting very soon after he had called the office stating was doing well he is again having inability to tolerate solid foods. ?He now states he is having difficulty swallowing liquids including ensure. ?His weight is now decreased to 103 pounds ? He was transferred to [facility]. ?Repeat upper endoscopy with balloon dilatation demonstrated recurrent stricture. ?Repeat biopsy returned as poorly differentiated adenocarcinoma. ? pathology returned as: FINAL DIAGNOSIS: A) STOMACH, ANTRUM, BIOPSY - REACTIVE GASTROPATHY. B) ESOPHAGEAL STRICTURE, BIOPSY - POORLY DIFFERENTIATED SQUAMOUS CELL CARCINOMA (SEE NOTE). NOTE: ?Immunohistochemical staining shows the tumor cells are positive for eldridge-keratin, p40 and CK5/6 and negative for TTF-1. Histochemical stain for mucin is negative. The findings are supportive of a diagnosis of squamous cell carcinoma. The patient is noted to have a large lung mass that involves the esophagus. Histologic evaluation alone cannot distinguish between origin from an esophageal primary versus lung primary. Clinical and radiologic correlation is necessary for such a distinction. Ancillary testing for PDL1 has been ordered and results will be issued separately when available. Dr. Kory Barragan has reviewed the case and agrees with the diagnosis. CT scan of the chest was consistent with a left lower lobe lung cancer. ?The pat ient remains poorly nourished and is still having difficulty swallowing. ?He is referred for PEG tube placement. The patient is being seen by me today at the request of ?for my opinion and advice regarding PEG tube placement.? specifically-CT scans of the chest abdomen and pelvis and brain returned as: : There is a 6.1 x 4.5 cm mass centered in the left lower lobe infrahilar region. ?The mass invades into the posterior mediastinum encasing the esophagus. ?There is suggestion of invasion into the posterior wall of the left atrium and there is abutment of the descending thoracic aorta. ? The mass also encases and narrows the left lower lobe bronchus. ? Differential would include bronchogenic carcinoma or esophageal carcinoma. ?Correlation with recent biopsy is recommended. There are linear and nodular opacities in the left lower lobe differential would include postobstructive areas of atelectasis and/or metastasis. Trace left pleural effusion. Moderate centrilobular emphysematous changes. IMPRESSION: There is a 1 cm x 0.4 cm subcapsular low-attenuation lesion in the left lobe of the liver too small to further characterize. ?Attention on follow-up studies is recommended. There are well-circumscribed low-attenuation lesions in both kidneys which measure slightly greater than simple fluid density. ?These are favored to represent renal cysts. ?Attention on follow-up studies is recommended Pneumobilia possibly from recent endoscopy. IMPRESSION: Age-appropriate CT of the brain without evidence of an acute intracranial process, mass, or pathologic enhancement to suggest intracranial metastatic disease. the patient was scheduled for PEG tube placement but was having challenges obtaining transportation so this was scheduled for October 26. The patient presents to [facility] today with complaints of worsening fatigue dehydration and some confusion. The patient was admitted to the medicine service. CBC demonstrated an elevated white blood cell count is 17.2. Chest x-ray demonstrates more opacification of the left lower lobe consistent with pneumonia/infiltrate. ?. Past Medical History Past Medical History (Chronic Problems): Chronic Problems COPD (chronic obstructive pulmonary disease) (Chronic) Allergies haloperidol [From Haldol] Allergy (Verified 10/25/18 10:03) Other Home Medications: Ambulatory Orders Medication Instructions Recorded NK 09/01/18 Surgical History: cholecystectomy Smoking Status: Former smoker - Patient has a history of his smoking of 45 years, started at the age of 15 smoking 3 packs/day until about 1 year ago. For last 1 year pack per day and then quit about 1 month ago Tobacco Use: Cigarettes - *Family History Paternal History Items: No pertinent history Review of Systems Constitutional: Reports: Anorexia, Malaise, Weakness, Weight Change, Fatigue HEENT: Reports: Difficulty Swallowing Cardiovascular: Reports: Chest Pain. Denies: Palpitations Respiratory: Reports: Cough, Shortness of Breath Gastrointestinal: Reports: Abdominal Pain Genitourinary: Denies: Dysuria Musculoskeletal: Denies: Joint Pain, Joint Tenderness Skin: Denies: Rash, Wounds Patient Problems: Active and Suspected Problems Bronchogenic lung cancer (Acute) Leukocytosis (Acute) Cancer cachexia (Acute) Extensive consolidation of left lung (Acute) Generalized weakness (Acute) Dysphagia (Acute) Subjective: poorly nourished poorly hydrated currently slightly confused. - Physical Exam General: Oriented x3, Cooperative Lungs: Diminished, Rales - coarse breath sounds left base Abdomen: Bowel Sounds Present, Soft, Non Tender Vital Signs Temp Pulse Resp BP Pulse Ox 98.1 F 112 H 20 H 116/80 94 10/25/18 14:15 10/25/18 14:15 10/25/18 14:15 10/25/18 14:15 10/25/18 14:15 Oxygen Delivery Method Room Air Weight: 45 kg Body Mass Index (BMI) 15.0 Intake and Output for Last 24 Hours 10/23/18 10/24/18 10/25/18 23:59 23:59 23:59 Intake Total 350 / 350 Balance 350 / 350 Laboratory Tests Past 24 Hrs 10/25/18 10/25/18 10/25/18 10:25 10:25 10:25 WBC 17.2 H RBC 4.39 L Hgb 13.1 Hct 38.5 L MCV 87.7 MCH 29.8 MCHC 34.0 RDW Std Deviation 43.9 RDW Coeff of Matthias 13.9 Plt Count MPV 11.8 Immature Gran % (Auto) 1.200 H Neut % (Auto) 88.3 H Lymph % (Auto) 4.2 L [place] % (Auto) 5.3 Eos % (Auto) 0.2 Baso % (Auto) 0.8 Absolute Neuts (auto) 15.2 H Absolute Lymphs (auto) 0.72 L Nucleated RBC % 0 Platelet Estimate SLT DEC Sodium 136 Potassium 3.8 Chloride 99 Carbon Dioxide 28.0 Anion Gap 9 BUN 55 H Creatinine 1.25 Estim Creat Clear Calc 40.73 Est GFR (MDRD) Af Amer 75 Est GFR (MDRD) Non-Af 62 BUN/Creatinine Ratio 44.0 H Glucose 137 H Calcium 9.9 Magnesium 2.5 Assessment/Plan All Active Problems Bronchogenic lung cancer (Acute) Leukocytosis (Acute) Cancer cachexia (Acute) Extensive consolidation of left lung (Acute) Generalized weakness (Acute) Dysphagia (Acute) IMPRESSION:?Lung cancer, esophageal stenosis, malnutrition, need for feeding access ? PLAN: ?I plan to perform upper?endoscopy with PEG tube placement. ??We discussed the risks and benefits of the planned endoscopy. ?I have informed the patient that complications can occur including failure to complete the endoscopy and perforation. ?The patient had the opportunity to ask questions concerning the planned endoscopy. ?My staff has also explained the procedure to the patient in understandable terms and has given the patient printed material concerning the procedure. ?The patient freely consents to surgery. the patient is currently receiving antibiotics worse presumed left lower lobe pneumonia. The patient has had significant decline in his performance status over the last month. I'm hopeful that by placing a feeding tube we can improve his hydration and nutrition status and provide a reasonable quality of life. I understand his plan is to contact hospice following PEG tube placement. ?
[2018-10-25 19:01] VITALS: BMI 15.0
[2018-10-25] MEDS: Ipratropium/Albuterol Sulfate 3 ML AMPUL.NEB INHALATION (19:23)
[2018-10-25 19:24] VITALS: PULSE 92; RESP 20
--- NOTE | 2018-10-25 19:42 | NURSING ---
Patient is very talkative.
[2018-10-25 19:59] VITALS: BP 128/68; PULSE 71; RESP 20; TEMP 36.7; O2SAT 91; O2SAT 92
[2018-10-26] VITALS (14 sets, daily range): BP systolic 88–130; BP diastolic 54–76; PULSE 58–125; RESP 16–20; TEMP 36.3–36.9; O2SAT 91–97
[2018-10-26] MEDS: 0.9% Normal Saline 1,000 ML 100 ML IV ×3 (00:12→19:18)
[2018-10-26] MEDS: HYDROmorphone 0.5 MG/0.5 ML SYRINGE IV ×4 (00:13→23:51)
[2018-10-26] MEDS: Ipratropium/Albuterol Sulfate 3 ML AMPUL.NEB INHALATION (00:32)
[2018-10-26] MEDS: proMETHazine 25 MG/ML Syringe 12.5 MG IV (03:25)
[2018-10-26 05:43] LABS: International Normalized Ratio 1.5; Prothrombin Time (Protime)PT. 17.9 SECONDS (11.7-14.9)
[2018-10-26 06:04] LABS: ALB/GLOB Ratio 0.4 RATIO (0.9-2.4); AST(SGOT) 35 U/L (15-37); Alanine Aminotransfer ALT/SGPT 22 U/L (16-61); Albumin, Serum 1.6 g/dL (3.2-5.0); Alkaline Phosphatase 63 U/L (45-117); Anion Gap 10 (5-15); BUN 64 mg/dL (7-18); BUN/Creat Ratio 59.3 RATIO (10-20); Calcium,Total 8.8 mg/dL (8.5-10.1); Chloride 104 mmol/L (98-107); Creatinine, Serum 1.08 mg/dL (0.70-1.30); EST Glomerular Filtration Rate 74 mL/min (>60); Est Glom Filt Rate - Afr Amer 89 mL/min (>60); Estimated Creatinine Clearance 45.72 ml/min; Globulin 4.1 g/dL (2.2-4.2); Glucose 111 mg/dL (74-106); Potassium 3.7 mmol/L (3.5-5.1); Protein, Total 5.7 g/dL (6.4-8.2); Sodium Level 141 mmol/L (136-145); Thyroid Stim Hormone (TSH) 2.47 uIU/mL (0.358-3.74)
[2018-10-26] MEDS: Ondansetron 4 MG/2 ML Vial IV ×2 (08:30→21:56)
--- NOTE | 2018-10-26 08:41 | PN_ITS ---
Patient Problems: Active and Suspected Problems Bronchogenic lung cancer (Acute) Leukocytosis (Acute) Cancer cachexia (Acute) Extensive consolidation of left lung (Acute) Generalized weakness (Acute) Dysphagia (Acute) Subjective: The patient is going for PEG tube procedure. No fever. No tachycardia. Vitals/I&O's: Vital Signs Temp Pulse Resp BP Pulse Ox 97.7 F L 59 L 16 130/76 H 94 10/26/18 07:32 10/26/18 07:42 10/26/18 07:32 10/26/18 07:32 10/26/18 07:32 Oxygen Flow Rate (L/min) 3 Oxygen Delivery Method Nasal Cannula Weight: 99 lb 3.328 oz Body Mass Index (BMI) 15.0 Intake and Output for Last 24 Hours 10/24/18 10/25/18 10/26/18 23:59 23:59 23:59 Intake Total 977 / 977 Balance 977 / 977 General: Alert, Oriented x3, Cooperative HEENT: Atraumatic, PERRLA, EOMI, Normocephalic Neck: Supple, No JVD, Negative Carotid Bruits Lungs: No wheeze, Diminished - Air entry severely diminished left lung base Cardiovascular: Regular rate, Regular Rhythm, Normal S1, Normal S2, No murmurs Abdomen: Bowel Sounds Present, Soft, Non Tender, Non-Distended Extremities: No edema, Capillary Refill Less than 3 Seconds Skin: No rashes, No breakdown Musculoskeletal: No Tenderness to Palpation of Joints or Extremities, Arthritic Changes, Muscle Wasting Neurological: Cranial nerves II-XII grossly intact, Deep Tendon Reflexes 2+/4 and Symmetrical, Neuro grossly intact Psych/Mental Status: Normal Affect, Appropriate Microbiology Past 72 Hours 10/25/18 19:20 Urine, Random Streptococcus pneumoniae Antigen (M - Final 10/25/18 19:20 Urine, Random Legionella Antigen - Final Laboratory Results 10/25/18 10:25: WBC 17.2 H, RBC 4.39 L, Hgb 13.1, Hct 38.5 L, MCV 87.7, MCH 2 9.8, MCHC 34.0, RDW Std Deviation 43.9, RDW Coeff of Matthias 13.9, Plt Count , MPV 11.8, Immature Gran % (Auto) 1.200 H, Neut % (Auto) 88.3 H, Lymph % (Auto) 4.2 L , Hudspeth % (Auto) 5.3, Eos % (Auto) 0.2, Baso % (Auto) 0.8, Absolute Neuts (auto) 15.2 H, Absolute Lymphs (auto) 0.72 L, Nucleated RBC % 0, Platelet Estimate SLT 10/25/18 10:25: Sodium 136, Potassium 3.8, Chloride 99, Carbon Dioxide 28.0, Anion Gap 9, BUN 55 H, Creatinine 1.25, Estim Creat Clear Calc 40.73, Est GFR (MDRD) Af Amer 75, Est GFR (MDRD) Non-Af 62, BUN/Creatinine Ratio 44.0 H, Glucose 137 H, Calcium 9.9 10/25/18 10:25: Magnesium 2.5 10/26/18 05:28: PT 17.9 H, INR 1.5 10/26/18 05:28: Sodium 141, Potassium 3.7, Chloride 104, Carbon Dioxide 27.0, Anion Gap 10, BUN 64 H, Creatinine 1.08, Estim Creat Clear Calc 45.72, Est GFR (MDRD) Af Amer 89, Est GFR (MDRD) Non-Af 74, BUN/Creatinine Ratio 59.3 H, Glucose 111 H, Calcium 8.8, Phosphorus 4.0, Total Bilirubin 1.50 H, AST 35, ALT 22, Alkaline Phosphatase 63, Total Protein 5.7 L, Albumin 1.6 L, Globulin 4.1, Albumin/Globulin Ratio 0.4 L, TSH 2.47 Current Medications Acetaminophen (Tylenol) 650 mg PO Q6H PRN PRN PRN Reason: Mild Pain (1-3)/Temp > 100.7 F Albuterol Sulfate (Ventolin Aerosols) 2.5 mg INHALATION Q2H PRN PRN PRN Reason: SHORTNESS OF BREATH Albuterol/Ipratropium (Duoneb) 3 ml INHALATION Q6H.RT [facility] Last Admin: 10/26/18 07:20 Dose: Not Given Documented by: Bisacodyl (Dulcolax) 10 mg RECTAL DAILY PRN PRN PRN Reason: Constipation Dextrose (D50w Syringe) 0 gm IV X1 PRN; Protocol PRN Reason: Hypoglycemia Enoxaparin Sodium (Lovenox) 40 mg SC DAILY@1000 [facility] Last Admin: 10/25/18 14:08 Dose: 40 mg Documented by: Glucagon () 1 mg IM .X1 PRN PRN Reason: Hypoglycemia Hydromorphone HCl (Dilaudid Inj) 0.5 mg IV Q3H PRN PRN PRN Reason: Severe pain (7-10/10) Last Admin: 10/26/18 03:25 Dose: 0.5 mg Documented by: Sodium Chloride () 1,000 mls @ 100 mls/hr IV .Q10H [facility] Last Admin: 10/26/18 00:12 Dose: 100 mls/hr Documented by: Azithromycin 500 mg/ Dextrose 255 mls @ 250 mls/hr IV Q24 [facility] Stop: 10/27/18 11:02 Last Admin: 10/25/18 15:48 Dose: 250 mls/hr Documented by: Ceftriaxone Sodium (Rocephin) 1 gm in 50 mls @ 100 mls/hr IV Q24 [facility] Last Admin: 10/25/18 15:07 Dose: 100 mls/hr Documented by: Melatonin (Melatonin) 3 mg PO QHS PRN PRN PRN Reason: INSOMNIA Ondansetron HCl (Zofran) 4 mg IV Q8H PRN PRN PRN Reason: NAUSEA/VOMITING Last Admin: 10/25/18 22:45 Dose: 4 mg Documented by: Promethazine HCl (Phenergan) 12.5 mg IV Q6H PRN PRN PRN Reason: Breakthrough nausea/vomiting Last Admin: 10/26/18 03:25 Dose: 12.5 mg Documented by: Sodium Chloride () 10 - 40 ml IV UD PRN PRN Reason: SALINE FLUSH Medical Necessity - Tobacco Use Smoking Status: Former smoker Tobacco Use: Cigarettes Assessment/Plan All Active Problems Bronchogenic lung cancer (Acute) Leukocytosis (Acute) Cancer cachexia (Acute) Extensive consolidation of left lung (Acute) Generalized weakness (Acute) Dysphagia (Acute) The patient is a 62 year old M with history of bronchogenic cancer diagnosed about 2 months ago with severe dysphagia and was transferred to [facility] on October 10, 2018. Patient had work-up there which shows metastasis to esophagus, brain and bones. Patient lost about 18 pounds in last 3 weeks mainly secondary to severe dysphagia. He had EGD done by Dr. Rodriguez on September 07, 2018 which shows intrinsic stenosis 32 cm from incisor about 3 cm in length with significant distal esophagitis, mild diffuse gastritis and duodenitis. In ED, patient has tachycardia, heart rate 121, respiratory rate 19. Leukocytosis 17.2 thousand, neutrophil 88%. 1. Bronchogenic cancer most probably left lung with possible wide metastasis to brain, bone and esophagus with severe esophageal dysphagia secondary to stricture, exact type and cellular differentiation unclear: Patient had diagnosis and staging of lung cancer in [facility] and no documentation available to corroborate it. The patient is being admitted on [facility]. Patient had PEG tube today and Dr. Gonzalez call me. 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 PEG tube is externally removable. I also discussed with Dr. Chang. EGD camera was pulled before he could see it but he thinks it is communicating with the pleural space. Repeat chest x-ray shows extensive consolidation in his left lower lobe with a small left pleural effusion. Reported new infiltrate in right lung but to me infiltrate looks little worse in the left lung. 2. Left lower lobe and lingular segment dense consolidation possible lung cancer/tumor mass with possibility of pneumonia: Chest x-ray PA and lateral done in ED shows extensive consolidation of left lower lobe and infiltration it lingular segment with features of COPD. This extensive consolidation was not presenting chest x-ray of July 2018. Started on IV Rocephin and Zithromax as patient is tachycardic, tachypneic and leukocytosis. Urinary antigens are negative. Sputum culture preliminary is seems to be normal respiratory alvino. Continue empiric antibiotic 3. COPD with extensive smoking history 4. Generalized weakness, cancer cachexia and severe protein calorie malnutrition: Nutrition is consulted. trust manager consult. Palliative care hospice. 5. MOLST/advance directive/CODE STATUS: Discussed with the patient about the CODE STATUS. He has already talked with hospice service and does not know the name of the hospice service. He agrees for DNR CC. Patient does not want artificial life support including intubation, tube feed, ventilator and/chest compression. Patient is DNR CC. Total time spent in [id number] encounter in discussion of advanced directive 18 minutes. DVT prophylaxis: On Lovenox 40 mg subcu daily. Clinical Impression(s) from Imaging Studies Chest X-Ray 10/25/18 13:10 IMPRESSION: Extensive consolidation in the left lower lobe. Infiltration in the lingular segment of the left upper lobe. Hyperinflation. Chest X-Ray 10/26/18 12:36 IMPRESSION: Stable infiltration in the left lung. Small left pleural effusion. New infiltrate in the right lung. Laboratory Results 10/25/18 10:25: WBC 17.2 H, RBC 4.39 L, Hgb 13.1, Hct 38.5 L, MCV 87.7, MCH 29.8, MCHC 34.0, RDW Std Deviation 43.9, RDW Coeff of Matthias 13.9, Plt Count , MPV 11.8, Immature Gran % (Auto) 1.200 H, Neut % (Auto) 88.3 H, Lymph % (Auto) 4.2 L , Hudspeth % (Auto) 5.3, Eos % (Auto) 0.2, Baso % (Auto) 0.8, Absolute Neuts (auto) 15.2 H, Absolute Lymphs (auto) 0.72 L, Nucleated RBC % 0, Platelet Estimate T FEB Microbiology Past 72 Hours 10/25/18 14:40 Sputum, Expectorated/Coughed Gram Stain - Final 10/25/18 14:40 Sputum, Expectorated/Coughed Respiratory Culture - Preliminary Appears to be normal respiratory alvino. Further studies to follow. 10/25/18 19:20 Urine, Random Streptococcus pneumoniae Antigen (M - Final 10/25/18 19:20 Urine, Random Legionella Antigen - Final Laboratory Results 10/25/18 10:25: Platelet Estimate SLT 10/26/18 05:28: PT 17.9 H, INR 1.5 10/26/18 05:28: Sodium 141, Potassium 3.7, Chloride 104, Carbon Dioxide 27.0, Anion Gap 10, BUN 64 H, Creatinine 1.08, Estim Creat Clear Calc 45.72, Est GFR (MDRD) Af Amer 89, Est GFR (MDRD) Non-Af 74, BUN/Creatinine Ratio 59.3 H, Glucose 111 H, Calcium 8.8, Phosphorus 4.0, Total Bilirubin 1.50 H, AST 35, ALT 22, Alkaline Phosphatase 63, Total Protein 5.7 L, Albumin 1.6 L, Globulin 4.1, Albumin/Globulin Ratio 0.4 L, TSH 2.47 Code Visit Inpatient E&M: 08169 Subs Hosp L3
[2018-10-26] MEDS: 0.9% NaCl Peripheral Flush Adult/Peds IV ×3 (09:07→21:56)
[2018-10-26] MEDS: Ceftriaxone 1 GM/50 ML BAG IV (09:34)
--- NOTE | 2018-10-26 10:40 | NS ---
Recommend enteral nutrition support via PEG. Recommend Jevity 1.5 at goal rate of 55mL/hour w/ 150mL H2O flush every 4 hours to provide 1980 calories, 84 g protein, and 1903mL free fluid/day. Would start at 20mL/hour and increase by 15mL every 6 hours as pt tolerates until goal rate achieved. Recommend daily wts and close monitoring of electrolytes- pt is at risk for refeeding syndrome. Reecommend FAMILY INDEPENDENCE CASE MANAGER evaluation to determine if any PO intake appropriate. See inpatient RD assessment for further information. Please call clinical dietitian at [phone] w/ nisha. Giovani Parra MS, RDN, LD
--- NOTE | 2018-10-26 11:26 | NURSING ---
pt off unit via bed 1105 for procedure. this nurse attempted to call report to endo, no answer at this time.
--- NOTE | 2018-10-26 11:36 | NURSING ---
discussed pt with MD regarding concern about pt going home and following up with hospice as pt has verbalized that he was crawling on the floor at home. also that pt refused therapy. Dr Heart stated that we could call [facility] hospice to see if pt could be discharged to inpatient hospice. spoke with Yadi at [facility], she stated that weakness is not an appropriate reason to admit to the inpatient unit, but that PEG tube management is an appropriate diagnosis. updated CM and SW. determined that when pt returns from procedure, explain that he needs to work with therapy to ensure safe discharge home or view other options for discharge.
--- NOTE | 2018-10-26 11:43 | NURSING ---
endo returned call, report given
--- NOTE | 2018-10-26 12:36 | RAD_ITS ---
STUDY: X-RAY CHEST REASON FOR EXAM: Male, 62 years old. History of lung esophageal fistula. The patient has a history of lung cancer. TECHNIQUE: Single AP portable view of the chest. COMPARISON: Comparison is made with prior study dated October 25, 2018. FINDINGS: EKG lead which are seen. Persistent diffuse infiltration of the left lung worse in the mid lung and left lower lobe with a small left pleural effusion. There now is evidence of airspace disease in the right hemithorax with evidence of bronchiectasis at the right lung base. Normal size heart. Normal mediastinum and federico. Normal visualized pulmonary arteries. There is atherosclerotic tortuosity of the aortic arch and descending thoracic aorta. There are degenerative changes of the visualized thoracic spine. Normal visualized ribs, clavicles, and shoulders. There is no demonstrated abnormality of the visualized soft tissue structures of the upper abdomen. RAD/Chest 1 View (Portable) IMPRESSION: Stable infiltration in the left lung. Small left pleural effusion. New infiltrate in the right lung. Electronically Signed: Jim Vasquez, at 13:42 EDT , Service support ,
--- NOTE | 2018-10-26 12:49 | OP.ENDO_ITS ---
10/26/2018 Shalom Jaramillo MD [address] [place] [address] Re : Upper GI endoscopy procedure for Brennan Mixon Dear Dr. Jaramillo This procedure was performed on October. My impressions and recommendations are as follows: Impressions : - Fistula in the lower third of the esophagus. - Normal gastric body. - An externally removable PEG placement was successfully completed. - No specimens collected. Recommendations : - [facility]. - Perform a PA chest x-ray today. - Continue present medications. My findings are described in the full procedure note, which is enclosed. If I can be of further assistance, please feel free to contact me at Doctor phone number(s): , Work: . Sincerely, Karlos Gonzalez MD 10/26/2018 12:48:48 PM This report has been signed electronically.
--- NOTE | 2018-10-26 12:50 | PN.SURG_ITS ---
Patient Problems: Active and Suspected Problems Bronchogenic lung cancer (Acute) Leukocytosis (Acute) Cancer cachexia (Acute) Extensive consolidation of left lung (Acute) Generalized weakness (Acute) Dysphagia (Acute) - Physical Exam General: Alert, Oriented x3 Lungs: Diminished - left base, Rales Cardiovascular: Tachycardic Abdomen: Bowel Sounds Present, Soft, Non Tender Vital Signs Temp Pulse Resp BP Pulse Ox 98.5 F 108 H 16 103/64 94 10/26/18 12:38 10/26/18 12:38 10/26/18 07:32 10/26/18 12:38 10/26/18 12:38 Oxygen Flow Rate (L/min) 3 Oxygen Delivery Method Room Air Weight: 45 kg Body Mass Index (BMI) 15.0 Intake and Output for Last 24 Hours 10/24/18 10/25/18 10/26/18 23:59 23:59 23:59 Intake Total 977 / 977 Balance 977 / 977 Microbiology Past 72 Hours 10/25/18 14:40 Gram Stain - Final Sputum, Expectorated/Coughed 10/25/18 19:20 Streptococcus pneumoniae Antigen (M - Final Urine, Random 10/25/18 19:20 Legionella Antigen - Final Urine, Random Laboratory Tests Past 24 Hrs 10/25/18 10/25/18 10/26/18 10:25 10:25 05:28 Platelet Estimate SLT DEC PT 17.9 H INR 1.5 Sodium Potassium Chloride Carbon Dioxide Anion Gap BUN Creatinine Estim Creat Clear Calc Est GFR (MDRD) Af Amer Est GFR (MDRD) Non-Af BUN/Creatinine Ratio Glucose Calcium Phosphorus Magnesium 2.5 Total Bilirubin AST ALT Alkaline Phosphatase Total Protein Albumin Globulin Albumin/Globulin Ratio TSH 10/26/18 05:28 Platelet Estimate PT INR Sodium 141 Potassium 3.7 Chloride 104 Carbon Dioxide 27.0 Anion Gap 10 BUN 64 H Creatinine 1.08 Estim Creat Clear Calc 45.72 Est GFR (MDRD) Af Amer 89 Est GFR (MDRD) Non-Af 74 BUN/Creatinine Ratio 59.3 H Glucose 111 H Calcium 8.8 Phosphorus 4.0 Magnesium Total Bilirubin 1.50 H AST 35 ALT 22 Alkaline Phosphatase 63 Total Protein 5.7 L Albumin 1.6 L Globulin 4.1 Albumin/Globulin Ratio 0.4 L TSH 2.47 Medical Necessity - Tobacco Use Smoking Status: Former smoker Tobacco Use: Cigarettes Assessment/Plan All Active Problems Bronchogenic lung cancer (Acute) Leukocytosis (Acute) Cancer cachexia (Acute) Extensive consolidation of left lung (Acute) Generalized weakness (Acute) Dysphagia (Acute) IMPRESSION:?Lung cancer, esophageal stenosis, malnutrition, need for feeding access ? PLAN: S/p?Upper?endoscopy with PEG tube placement. 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 Multiple images were taken. I was able to advance into the stomach and place the PEG tube. The patient will be started on gastric feed ing and hydration. Given the size of the communication between his esophagus and the tumor cavity, he'll be maintained nothing by mouth. the patient is currently receiving antibiotics worse presumed left lower lobe pneumonia/esophageal, tumor cavity fistula The patient has had significant decline in his performance status over the last month. I'm hopeful that by placing a feeding tube we can improve his hydration and nutrition status and provide a reasonable quality of life. I understand his plan is to contact hospice following PEG tube placement. do not plan to perform tube thoracostomy and less patient has lung collapse, tension pneumothorax ?
[2018-10-26] MEDS: Morphine 2 MG/ML Syringe 1 MG IV (15:20)
[2018-10-26] MEDS: Jevity 1.5 1,000 ML 20 ML GT (16:12)
[2018-10-27 02:20] VITALS: BP 96/62; PULSE 105; RESP 18; TEMP 36.3; O2SAT 97
[2018-10-27 04:20] VITALS: BP 106/63; PULSE 92; RESP 18; TEMP 36.8; O2SAT 96
[2018-10-27 05:25] LABS: Basophil# 0.03 X10^3/uL; Hematocrit 31.2 % (40-54); Hemoglobin 10.6 g/dL (13.0-16.5); Mean Corpuscular Hgb 29.4 pg (27.0-32.0); Mean Corpuscular Volume 86.4 fL (80-94); Mean Platelet Vol. 9.9 fl (6.2-12.0); Monocyte# 0.27 X10^3/uL; NRBC Flagged by Analyzer 0 % (0-5); POSITIVE MORPHOLOGY YES; Platelet Count 175 K/mm3 (150-450); RBC Distribution Width CV 13.6 % (11.6-14.6); RBC Distribution Width SD 42.9 fl (35.1-43.9); Red Blood Count 3.61 M/mm3 (4.6-6.2); White Blood Count 10.2 K/mm3 (4.4-11.0)
[2018-10-27] MEDS: 0.9% Normal Saline 1,000 ML 100 ML IV (05:28)
[2018-10-27 05:53] LABS: Differential Indicated SCAN CRITERIA MET
[2018-10-27] MEDS: 0.9% NaCl Peripheral Flush Adult/Peds IV (06:23)
[2018-10-27] MEDS: HYDROmorphone 0.5 MG/0.5 ML SYRINGE IV ×3 (06:24→16:30)
[2018-10-27 07:10] VITALS: O2SAT 95
[2018-10-27 07:21] LABS: Scan Smear per Review Criteria MANUAL DIFF
[2018-10-27 07:24] LABS: Monocyte 2 % (0-10); Neutrophil-Segmented 96 % (47-70); Plasma Cell 2 %; Toxic Granulation 2+
[2018-10-27 07:25] LABS: Crenated RBC 2+; Platelet Estimate ADEQUATE (ADEQ); Red Cell Morphology NORM C+C NORMAL (NORM C&C); Target Cells 1+
[2018-10-27 07:26] LABS: Absolute Neutrophil Count 9.8 X10^3/uL (2.0-7.7); Neutrophil # 9.79 X10^3/uL (2.7-7.7)
[2018-10-27 08:01] VITALS: BP 110/69; PULSE 90; RESP 16; TEMP 36.6; O2SAT 94
[2018-10-27 08:12] VITALS: RESP 18
[2018-10-27] MEDS: Ceftriaxone 1 GM/50 ML BAG IV (09:29)
[2018-10-27] MEDS: Enoxaparin 40 MG/0.4 ML Syringe SC (09:35)
--- NOTE | 2018-10-27 09:54 | PN_ITS ---
Patient Problems: Active and Suspected Problems Bronchogenic lung cancer (Acute) Leukocytosis (Acute) Cancer cachexia (Acute) Extensive consolidation of left lung (Acute) Generalized weakness (Acute) Dysphagia (Acute) Subjective: Patient is tolerating tube feed at 55 mill per hour. On tube feed Jevity 1.5. Tube feed was restarted last night. Patient denies burping or gastric distention symptoms. When asked about hospice service, he states talk to the hospice service. My understanding is patient is not physically and mentally strong or cognitively intact to take care of himself, tube feed at home. He will be better served in inpatient hospice service. Vitals/I&O's: Vital Signs Temp Pulse Resp BP Pulse Ox 97.8 F 90 18 110/69 94 10/27/18 08:01 10/27/18 08:01 10/27/18 08:12 10/27/18 08:01 10/27/18 08:01 Oxygen Flow Rate (L/min) 3 Oxygen Delivery Method Nasal Cannula Weight: 99 lb 3.328 oz Body Mass Index (BMI) 15.0 Intake and Output for Last 24 Hours 10/25/18 10/26/18 10/27/18 23:59 23:59 23:59 Intake Total 977 / 977 1626 / 1626 1180 / 1180 Balance 977 / 977 1626 / 1626 1180 / 1180 Microbiology Past 72 Hours 10/25/18 14:40 Sputum, Expectorated/Coughed Gram Stain - Final 10/25/18 14:40 Sputum, Expectorated/Coughed Respiratory Culture - Preliminary Appears to be normal respiratory alvino. Further studies to follow. 10/25/18 19:20 Urine, Random Streptococcus pneumoniae Antigen (M - Final 10/25/18 19:20 Urine, Random Legionella Antigen - Final Laboratory Results 10/27/18 05:15: WBC 10.2, RBC 3.61 L, Hgb 10.6 L, Hct 31.2 L, MCV 86.4, MCH 29.4, MCHC 34.0, RDW Std Deviation 42.9, RDW Coeff of Matthias 13.6, Plt Count 175, MPV 9.9, Immature Gran % (Auto) BYPRODUCTS OPERATOR, Neut % (Auto) BYPRODUCTS OPERATOR, Lymph % (Auto) BYPRODUCTS OPERATOR, [place] % (Auto) BYPRODUCTS OPERATOR, Eos % (Auto) BYPRODUCTS OPERATOR, Baso % (Auto) BYPRODUCTS OPERATOR, Absolute Neuts (auto) 9.8 H, Absolute Lymphs (auto) 0.00 L, Neutrophils % (Manual) 96 H, Monocytes % (Manual) 2, Plasma Cell % (Manual) 2, Nucleated RBC % 0, Diff Path Review May foll, Toxic Granulation 2+, Platelet Estimate ADEQUATE, RBC Morphology NORM C+C, Target Cells 1+, Crenated Cell 2+ Current Medications Acetaminophen (Tylenol) 650 mg RECTAL Q4H PRN PRN PRN Reason: pain/fever Albuterol Sulfate (Ventolin Aerosols) 2.5 mg INHALATION Q2H PRN PRN PRN Reason: SHORTNESS OF BREATH Albuterol/Ipratropium (Duoneb) 3 ml INHALATION Q6H.RT [facility] Last Admin: 10/27/18 07:10 Dose: Not Given Documented by: Bisacodyl (Dulcolax) 10 mg RECTAL DAILY PRN PRN PRN Reason: Constipation Dextrose (D50w Syringe) 0 gm IV X1 PRN; Protocol PRN Reason: Hypoglycemia Enoxaparin Sodium (Lovenox) 40 mg SC DAILY@1000 [facility] Last Admin: 10/27/18 09:35 Dose: 40 mg Documented by: Glucagon () 1 mg IM .X1 PRN PRN Reason: Hypoglycemia Hydromorphone HCl (Dilaudid Inj) 0.5 mg IV Q3H PRN PRN PRN Reason: Severe pain (7-1010) Last Admin: 10/27/18 09:34 Dose: 0.5 mg Documented by: Sodium Chloride () 1,000 mls @ 100 mls/hr IV .Q10H [facility] Last Admin: 10/27/18 05:28 Dose: 100 mls/hr Documented by: Azithromycin 500 mg/ Dextrose 255 mls @ 250 mls/hr IV Q24 [facility] Stop: 10/27/18 11:02 Last Admin: 10/26/18 10:22 Dose: 250 mls/hr Documented by: Ceftriaxone Sodium (Rocephin) 1 gm in 50 mls @ 100 mls/hr IV Q24 [facility] Last Admin: 10/27/18 09:29 Dose: 100 mls/hr Documented by: Enteral Nutritional Formula (Jevity 1.5) 1,000 mls @ 20 mls/hr GT .Q48H [facility] Last Admin: 10/26/18 16:12 Dose: 20 mls/hr Documented by: Melatonin (Melatonin) 3 mg PO QHS PRN PRN PRN Reason: INSOMNIA Ondansetron HCl (Zofran) 4 mg IV Q8H PRN PRN PRN Reason: NAUSEA/VOMITING Last Admin: 10/26/18 21:56 Dose: 4 mg Documented by: Promethazine HCl (Phenergan) 12.5 mg IV Q6H PRN PRN PRN Reason: Breakthrough nausea/vomiting Last Admin: 10/26/18 03:25 Dose: 12.5 mg Documented by: Sodium Chloride () 10 - 40 ml IV UD PRN PRN Reason: SALINE FLUSH Last Admin: 10/27/18 06:23 Dose: 10 ml Documented by: Medical Necessity - Tobacco Use Smoking Status: Former smoker Tobacco Use: Cigarettes Assessment/Plan All Active Problems Bronchogenic lung cancer (Acute) Leukocytosis (Acute) Cancer cachexia (Acute) Extensive consolidation of left lung (Acute) Generalized weakness (Acute) Dysphagia (Acute)
--- NOTE | 2018-10-27 10:16 | CASEMGMT ---
Social Work Note Physician feels pt needs to go to inpatient unit at [facility] instead of home with Hospice. Physician also feels that pt is not able to make sound/safe decisions at this time. Pt has no HCPOA and only a friend named Al listed on pt's chart. Physician states he would be willing to declare pt not able to make his own decisions with another physician. THANH met with pt. SW introduced self and role. Pt states that he plans on going home with Hospice and that has been arranged. SW explained that the physician feels there are concerns with pt going home right now and informed pt he can go to inpatient unit initially and then transition home. Pt states you are the seventh person who has talked to me about this and no one is listening. Pt states there is only one doctor who is making the decisions and that is Dr. Gonzalez. SW informed pt that this worker can speak have hospitalist speak with Dr. Gonzalez. Pt states that's what I have been telling everyone to do. SW updated RN PAMELA Akbar who texted hospitalist to speak with Dr. Gonzalez about pt going to inpatient hospice initially to manage Peg Tube. THANH placed a call to [facility] and spoke with Sena. THANH updated Sena that physician feels pt needs to go to inpatient hospice and pt's cognition is declining and unable to make decisions for self. Sena states pt has already signed Hospice Paperwork and all they need to do is have an RN come asses pt at [facility] and then could get pt to inpatient unit. [facility] to call this worker back. Plan: inpatient hospice vs home with hospice Riddhi Beltran OVERHEAD CRANE OPERATOR, HOT STICK MAN
--- NOTE | 2018-10-27 11:45 | DCINST_ITS ---
- Discharge Diagnoses Current Active Problems: Current Active and Chronic Problems Bronchogenic lung cancer (Acute) Leukocytosis (Acute) Cancer cachexia (Acute) Extensive consolidation of left lung (Acute) COPD (chronic obstructive pulmonary disease) (Chronic) Generalized weakness (Acute) Dysphagia (Acute) You will use the following diet at home:: Other - tube feed Jevity 1.5 Discharge Activity: May Not Drive Additional Instructions: On inpatient hospice Allergies/Adverse Reactions: Allergies haloperidol [From Haldol] Allergy (Verified 10/25/18 10:03) Other Medications to take at Discharge Albuterol Aerosols [Ventolin Aerosols] 2.5 mg INHALATION Q2H PRN PRN vial.neb. 10/27/18 Bisacodyl [Dulcolax] 10 mg RECTAL DAILY PRN PRN suppos. 10/27/18 Levofloxacin [Levaquin] 500 mg GT DAILY #4 tab 10/27/18 The following prescriptions were given: Levofloxacin [Levaquin] 500 mg GT DAILY #4 tab Prescription Printed Primary Care Physician: Shalom Jaramillo Chi, MD [Primary Care Provider] - Test Results: Test results from this visit will be discussed in further detail at your follow- up appointment, if applicable.
--- NOTE | 2018-10-27 12:24 | PCA ---
hospice called to inform this pathology secretary that they are sending an RN to hospital at this time from [facility] to do an assessment on the patient
[2018-10-27 13:02] LABS: Pathologist Review Reviewed
--- NOTE | 2018-10-27 14:32 | DS.PCM_ITS ---
Discharge Date and Diagnosis - Problem List Patient Problems: Active and Suspected Problems Bronchogenic lung cancer (Acute) Leukocytosis (Acute) Cancer cachexia (Acute) Extensive consolidation of left lung (Acute) Generalized weakness (Acute) Dysphagia (Acute) Date of Admission: 10/25/18 Date of Discharge: 10/27/18 - Primary Discharge Diagnosis Active and Suspected Problems Bronchogenic lung cancer (Acute) Leukocytosis (Acute) Cancer cachexia (Acute) Extensive consolidation of left lung (Acute) Generalized weakness (Acute) Dysphagia (Acute) - Secondary Discharge Diagnosis Chronic Problems COPD (chronic obstructive pulmonary disease) (Chronic) Hospital Course and Treatment Summary of Care Provided: ] The patient is a 62 year old M with history of bronchogenic cancer diagnosed about 2 months ago with severe dysphagia and was transferred to [facility] on October 10, 2018. Patient had work-up there which shows metastasis to esophagus, brain and bones. Patient lost about 18 pounds in last 3 weeks mainly secondary to severe dysphagia. He had EGD done by Dr. Rodriguez on September 07, 2018 which shows intrinsic stenosis 32 cm from incisor about 3 cm in length with significant distal esophagitis, mild diffuse gastritis and duodenitis. In ED, patient has tachycardia, heart rate 121, respiratory rate 19. Leukocytosis 17.2 thousand, neutrophil 88%. 1. 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 The patient is being admitted on [facility]. Patient had PEG tube today and Dr. Gonzalez call me. 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 PEG tube is externally removable. I also discussed with Dr. Chang. EGD camera was pulled before he could see it but he thinks it is communicating with the pleural space. Repeat chest x-ray shows extensive consolidation in his left lower lobe with a small left pleural effusion. Reported new infiltrate in right lung but to me infiltrate looks little worse in the left lung. 2. Left lower lobe and lingular segment dense consolidation possible lung cancer/tumor mass with possibility of pneumonia: Chest x-ray PA and lateral done in ED shows extensive consolidation of left lower lobe and infiltration it lingular segment with features of COPD. This extensive consolidation was not presenting chest x-ray of July 2018. Started on IV Rocephin and Zithromax as patient is tachycardic, tachypneic and leukocytosis. Urinary antigens are negative. Sputum culture preliminary is seems to be normal respiratory alvino. Discharged on 4 more days of Levaquin. 3. COPD with extensive smoking history 4. Generalized weakness, cancer cachexia and severe protein calorie malnutrition: Nutrition is consulted. manager creative consult. Palliative care/hospice care consult was called. Patient was evaluated by hospice nurse and found appropriate for inpatient hospice service. Patient is discharged to inpatient hospice 5. MOLST/advance directive/CODE STATUS: Discussed with the patient about the CODE STATUS. He has already talked with hospice service and does not know the name of the hospice service. He agrees for DNR CC. Patient does not want artificial life support including intubation, tube feed, ventilator and/chest compression. DNR CC papers signed. Patient is DNR CC. DVT prophylaxis: Discontinue Lovenox Acute anemia possible secondary to procedure related blood loss or hemoconcentration: Patient H&H dropped from 13.1-10.6. No obvious bleeding. On ferrous sulfate. Discharge medication reconciliation done. Discharge follow-up instructions completed. Discharge process discussed with the patient and all questions were answered to patient's satisfaction. Discharge to inpatient hospice care Total time spent, exact 35 minutes on discharge meds reconciliation, examination, review of imaging and blood test and discussion with the patient on follow-up instructions. Clinical Impression(s) from Imaging Studies Chest X-Ray 10/25/18 13:10 IMPRESSION: Extensive consolidation in the left lower lobe. Infiltration in the lingular segment of the left upper lobe. Hyperinflation. Chest X-Ray 10/26/18 12:36 IMPRESSION: Stable infiltration in the left lung. Small left pleural effusion. New infiltrate in the right lung. Patient Problems: Active and Suspected Problems Bronchogenic lung cancer (Acute) Leukocytosis (Acute) Cancer cachexia (Acute) Extensive consolidation of left lung (Acute) Generalized weakness (Acute) Dysphagia (Acute) Subjective: Patient is tolerating tube feed at 55 mill per hour. On tube feed Jevity 1.5. Tube feed was restarted last night. Patient denies burping or gastric distention symptoms. When asked about hospice service, he states talk to the hospice service. Hospice service was consulted. My understanding is patient is not physically and mentally strong or cognitively intact to take care of himself, tube feed at home. Hospice service agreed for inpatient hospice. - Physical Exam General: Lethargic, - - At times he gets irritable HEENT: Atraumatic, PERRLA, EOMI, Normocephalic Neck: Supple, No JVD, Negative Carotid Bruits Lungs: Diminished - Air entry severely diminished more on left lung base, Rhonchi, Short of Breath, Tachypneic - Conversation Cardiovascular: Regular rate, Normal S1, Normal S2, No murmurs Abdomen: Bowel Sounds Present, Soft, Non Tender, Non-Distended, - - On tube feed Extremities: No clubbing, No edema Skin: No rashes, No breakdown Musculoskeletal: Arthritic Changes, Muscle Wasting, - - Cancer cachexia Neurological: Cranial nerves II-XII grossly intact, Deep Tendon Reflexes 2+/4 and Symmetrical Vital Signs Temp Pulse Resp BP Pulse Ox 97.8 F 90 18 110/69 94 10/27/18 08:01 10/27/18 08:01 10/27/18 08:12 10/27/18 08:01 10/27/18 08:01 Oxygen Flow Rate (L/min) 3 Oxygen Delivery Method Nasal Cannula Weight: 99 lb 3.328 oz Body Mass Index (BMI) 15.0 Intake and Output for Last 24 Hours 10/25/18 10/26/18 10/27/18 23:59 23:59 23:59 Intake Total 977 / 977 1626 / 1626 1639 / 1639 Balance 977 / 977 1626 / 1626 1639 / 1639 Microbiology Past 72 Hours 10/25/18 14:40 Gram Stain - Final Sputum, Expectorated/Coughed Respiratory Culture - Preliminary Appears to be normal respiratory alvino. Further studies to follow. 10/25/18 19:20 Streptococcus pneumoniae Antigen (M - Final Urine, Random 10/25/18 19:20 Legionella Antigen - Final Urine, Random Laboratory Tests Past 24 Hrs 10/27/18 05:15 WBC 10.2 RBC 3.61 L Hgb 10.6 L Hct 31.2 L MCV 86.4 MCH 29.4 MCHC 34.0 RDW Std Deviation 42.9 RDW Coeff of Matthias 13.6 Plt Count 175 MPV 9.9 Immature Gran % (Auto) BOX BLANK MACHINE FEEDER Neut % (Auto) BOX BLANK MACHINE FEEDER Lymph % (Auto) BOX BLANK MACHINE FEEDER [place] % (Auto) BOX BLANK MACHINE FEEDER Eos % (Auto) BOX BLANK MACHINE FEEDER Baso % (Auto) BOX BLANK MACHINE FEEDER Absolute Neuts (auto) 9.8 H Absolute Lymphs (auto) 0.00 L Neutrophils % (Manual) 96 H Monocytes % (Manual) 2 Plasma Cell % (Manual) 2 Nucleated RBC % 0 Diff Path Review Reviewed Toxic Granulation 2+ Platelet Estimate ADEQUATE RBC Morphology NORM C+C Target Cells 1+ Crenated Cell 2+ Discharge Activity: May Not Drive Home Medications: Medications to take at Discharge Albuterol Aerosols [Ventolin Aerosols] 2.5 mg INHALATION Q2H PRN PRN vial.neb. 10/27/18 Bisacodyl [Dulcolax] 10 mg RECTAL DAILY PRN PRN suppos. 10/27/18 Levofloxacin [Levaquin] 500 mg GT DAILY #4 tab 10/27/18 Following Prescrptions Were Given to Patient: Levofloxacin [Levaquin] 500 mg GT DAILY #4 tab Prescription Printed Primary Care Physician: Shalom Jaramillo Chi, MD [Primary Care Provider] - Medical Necessity - Tobacco Use Smoking Status: Former smoker Tobacco Use: Cigarettes Meaningful Use Info Meaningful Use Diagnoses (Choose all that apply): None applicable Code Visit Inpatient E&M: 03560 Disch Hosp
--- NOTE | 2018-10-27 14:50 | CHAPLAIN ---
Type of Pastoral Visit _x__ Initial Visit ___ Follow-up Visit ___ On-call Visit ___ General Patient Visit ___ Spiritual Assessment ___ Family Conference ___ Bereavement ___ Rapid Response ___ Code Blue ___ Other (describe below) Pastoral Care Referral From ___ Patient ___ Family ___ Nurse ___ Physician ___ Major Account Manager _x__ Boring Mill Set Up Operator ___ Other (describe below) Sacrament/Intervention _x__ Active listening ___ Anointing ___ Latter Day ___ Bereavement ___ Communion ___ Zaina exploration ___ ___ Life review ___ Prayer ___ Reconciliation ___ Sacrament of Sick ___ Supportive presence ___ Wedding ___ Other (describe below) Pastoral Comments patient declines support from criminal records technician saying I just spent a couple hours with people and it is going to take more a couple hours to come down from that and I don't want to talk with anyone right now; when offered support for future the patient said I have enough support
--- NOTE | 2018-10-27 15:06 | CASEMGMT ---
Social Work Note Pt is discharging to inpatient Hospice today. [facility] arranged transportation for 5:00pm. RN updated. Plan: Inpatient [facility] today Riddhi Beltran CAMPGROUND HAND, MILL LABOR SUPERVISOR
--- NOTE | 2018-10-27 15:22 | CPS ---
pt has refused aerosols today, intermittently confused.
--- NOTE | 2018-10-27 16:48 | NURSING ---
ATTEMPTED TO CALL REPORT TO HOSPICE, NO ANSWER OF YET. WILL RETRY AGAIN SHORTLY.
--- NOTE | 2018-10-27 18:09 | PN.SURG_ITS ---
Subjective: would like some liquids to moisten mouth. - Physical Exam General: Alert, Oriented x3 Lungs: Diminished, Wheezes, - - decreased breath sounds coarse breath sounds left base Cardiovascular: Regular rate, Regular Rhythm Vital Signs Temp Pulse Resp BP Pulse Ox 97.8 F 90 18 110/69 94 10/27/18 08:01 10/27/18 08:01 10/27/18 08:12 10/27/18 08:01 10/27/18 08:01 Oxygen Flow Rate (L/min) 3 Oxygen Delivery Method Nasal Cannula Weight: 45 kg Body Mass Index (BMI) 15.0 Intake and Output for Last 24 Hours 10/25/18 10/26/18 10/27/18 23:59 23:59 23:59 Intake Total 977 / 977 1626 / 1626 1639 / 1639 Balance 977 / 977 1626 / 1626 1639 / 1639 Microbiology Past 72 Hours 10/25/18 14:40 Gram Stain - Final Sputum, Expectorated/Coughed Respiratory Culture - Preliminary Appears to be normal respiratory alvino. Further studies to follow. 10/25/18 19:20 Streptococcus pneumoniae Antigen (M - Final Urine, Random 10/25/18 19:20 Legionella Antigen - Final Urine, Random Laboratory Tests Past 24 Hrs 10/27/18 05:15 WBC 10.2 RBC 3.61 L Hgb 10.6 L Hct 31.2 L MCV 86.4 MCH 29.4 MCHC 34.0 RDW Std Deviation 42.9 RDW Coeff of Matthias 13.6 Plt Count 175 MPV 9.9 Immature Gran % (Auto) RESTAURANT FRONT MANAGER Neut % (Auto) RESTAURANT FRONT MANAGER Lymph % (Auto) RESTAURANT FRONT MANAGER [place] % (Auto) RESTAURANT FRONT MANAGER Eos % (Auto) RESTAURANT FRONT MANAGER Baso % (Auto) RESTAURANT FRONT MANAGER Absolute Neuts (auto) 9.8 H Absolute Lymphs (auto) 0.00 L Neutrophils % (Manual) 96 H Monocytes % (Manual) 2 Plasma Cell % (Manual) 2 Nucleated RBC % [address] Review Reviewed Toxic Granulation 2+ Platelet Estimate ADEQUATE RBC Morphology NORM C+C Target Cells 1+ Crenated Cell 2+ Medical Necessity - Tobacco Use Smoking Status: Former smoker Tobacco Use: Cigarettes Assessment/Plan All Active Problems Bronchogenic lung cancer (Acute) Leukocytosis (Acute) Cancer cachexia (Acute) Extensive consolidation of left lung (Acute) Generalized weakness (Acute) Dysphagia (Acute) IMPRESSION:?Lung cancer, esophageal stenosis, malnutrition, need for feeding access ? PLAN: S/p?Upper?endoscopy with PEG tube placement. 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 Multiple images were taken. I was able to advance into the stomach and place the PEG tube. The patient will be started on gastric feeding and hydration. Given the size of the communication between his esophagus and the tumor cavity, he'll be maintained nothing by mouth - but I did feel is reasonable for him to have sips of clear liquids and spit them out just for oral comfort.. the patient is currently receiving antibiotics worse presumed left lower lobe pneumonia/esophageal, tumor cavity fistula The patient has had significant decline in his performance status over the last month. I'm hopeful that by placing a feeding tube we can improve his hydration and nutrition status and provide a reasonable quality of life. I understand his plan is to contact [facility] following PEG tube placement. do not plan to perform tube thoracostomy and less patient has lung collapse, tension pneumothorax. the patient was started on tube feeds and he is now at his goal rate of 50 cc per hour. He will be discharged with care followed up by hospice. ?
== END 2018-10-27 17:10 | disposition home or self-care (01) ==
LOC: ED 10:38 → MS3 12:59
PROVIDERS: Surgery; Admitting Provider Internal Medicine; Emergency Provider Emergency Medicine; Family Provider Family Medicine Geriatric Medicine; PCP Family Medicine Geriatric Medicine; Referring Provider Internal Medicine; Visit Provider Internal Medicine
PROC: 0DJ08ZZ Inspection of Upper Intestinal Tract, Via Natural or Artificial Opening Endoscopic (ICD-10-PCS; CPT 43235; principal; 2018-10-26 11:55)
DX: C34.90 Malignant neoplasm of unspecified part of unspecified bronchus or lung (principal); C78.89 Secondary malignant neoplasm of other digestive organs; R13.10 Dysphagia, unspecified; Z68.1 Body mass index [BMI] 19.9 or less, adult; E43 Unspecified severe protein-calorie malnutrition; J44.9 Chronic obstructive pulmonary disease, unspecified; C79.51 Secondary malignant neoplasm of bone; G89.29 Other chronic pain; C79.31 Secondary malignant neoplasm of brain; E86.0 Dehydration; Z87.891 Personal history of nicotine dependence; Z79.899 Other long term (current) drug therapy; D64.9 Anemia, unspecified
CPT/HCPCS: 43246; 36415; 71045; 71046; 80048; 80053; 83735; 84100; 84443; 85025; 85610; 87070; 87205; 87449; 94640; 96361; 96365; 96366; 96367; 96372; 96375; 96376; 97802; 99218; 99285; J7030; A4216; G0378; J2405